=== PATIENT | female | born 1965 | race Caucasian/White ===

== ENCOUNTER 2017-10-29 19:40 | Observation (INO) | payer OTHER ==
[2017-10-29 19:49] VITALS: BMI 24.0
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
[2017-10-29] MEDS ORDERED: ASPIRIN 81 MG CHEWABLE TABLETS PO ONE (20:57)
[2017-10-29] MEDS ORDERED: NITROGLYCERIN SUBLINGUAL 1/200 0.3 MG BTL SL ONE (20:57)
[2017-10-29] MEDS ORDERED: ASPIRIN 81 MG CHEWABLE TABLETS ONE (21:11)
[2017-10-29] MEDS ORDERED: NITROGLYCERIN 2% OINTMENT - 1GM PACKET TD ONE ×2 (21:13→21:50)
[2017-10-29] MEDS ORDERED: ACETAMINOPHEN 1000 MG/100 ML VIAL (NON FORMULARY) IVPB ONE (21:13)
[2017-10-29 21:31] LABS: BASO % 0.3 % (0-2.0); EOS % 2.2 % (0-4.5); HEMATOCRIT 40.2 % (32.4-45.2); HEMOGLOBIN 13.8 GM/dL (10.7-15.3); MCH 31.4 pg (25.7-33.7); MCHC 34.4 g/dl (32.0-36.0); MEAN CELL VOLUME 91.3 fl (80-96); MEAN PLT VOLUME 8.7 fl (7.5-11.1); NEUT % 54.5 % (42.8-82.8); PLATELET COUNT 280 K/MM3 (134-434); RDW 12.5 % (11.6-15.6); WHITE BLOOD COUNT 8.6 K/mm3 (4.0-10.0)
[2017-10-29 21:43] LABS: INR 1.04 (0.83-1.09); PROTHROMBIN TIME (PATIENT) 11.7 SEC (9.7-13.0)
[2017-10-29 21:49] LABS: ALBUMIN 3.6 g/dl (3.4-5.0); ALK PHOS 82 U/L (45-117); ANION GAP 7 MMOL/L (8-16); BILIRUBIN,TOTAL 0.2 mg/dL (0.2-1); BLOOD UREA NITROGEN 12 mg/dL (7-18); CALCIUM 8.4 mg/dL (8.5-10.1); CHLORIDE 108 mmol/L (98-107); CO2 27 mmol/L (21-32); CREATININE 0.6 mg/dL (0.55-1.3); GLUCOSE,RANDOM 196 mg/dL (74-106); POTASSIUM 4.1 mmol/L (3.5-5.1); SGOT/AST 15 U/L (15-37); SGPT/ALT 22 U/L (13-61); SODIUM 142 mmol/L (136-145); TOT PROT 7.1 g/dl (6.4-8.2)
[2017-10-29] MEDS ORDERED: ACETAMINOPHEN INJECTION 100 ML IVPB ONE (21:50)
[2017-10-29] MEDS ORDERED: METOPROLOL TARTRATE 25 MG TABLET (FP) PO ONE (23:25)
[2017-10-29] MEDS ORDERED: ACETAMINOPHEN 325 MG TABLET (FP) PO PRN (23:26)
[2017-10-29] MEDS ORDERED: PATIENT'S OWN MEDICATION (NON-FORMULARY) (Dulaglutide [Trulicity] 0.75 MG) SQ SCH (23:30)
[2017-10-29 23:36] LABS: PHOSPHOROUS 3.2 mg/dL (2.5-4.9)
[2017-10-30] MEDS ORDERED: morphine CARPU-JECT 2 MG/1 ML DISP.SYRIN IVPUSH ONE (01:24)
[2017-10-30] MEDS ORDERED: MORPHINE SULFATE 2 MG/ML VIAL ONE (01:27)
[2017-10-30 01:38] LABS: CHOLESTEROL 172 mg/dL (50-200); HDL CHOLESTEROL 48 mg/dL (40-60); TRIGLYCERIDES 83 mg/dL (0-150)
[2017-10-30] MEDS ORDERED: ACETAMINOPHEN 325 MG TABLET (FP) ONE (06:30)
[2017-10-30 06:59] LABS: BASO % 0.8 % (0-2.0); HEMATOCRIT 34.6 % (32.4-45.2); HEMOGLOBIN 11.8 GM/dL (10.7-15.3); LYMPH % 49.9 % (8-40); MCH 31.1 pg (25.7-33.7); MCHC 34.3 g/dl (32.0-36.0); MEAN CELL VOLUME 90.6 fl (80-96); MEAN PLT VOLUME 8.8 fl (7.5-11.1); MONO % 8.2 % (3.8-10.2); NEUT % 38.1 % (42.8-82.8); PLATELET COUNT 230 K/MM3 (134-434); RBC 3.82 M/mm3 (3.60-5.2); RDW 12.8 % (11.6-15.6); WHITE BLOOD COUNT 6.5 K/mm3 (4.0-10.0)
[2017-10-30 07:02] VITALS: TEMP 98.1
[2017-10-30 07:54] LABS: ANION GAP 5 MMOL/L (8-16); BLOOD UREA NITROGEN 10 mg/dL (7-18); CHLORIDE 109 mmol/L (98-107); CO2 28 mmol/L (21-32); CREATININE 0.5 mg/dL (0.55-1.3); GLUCOSE,RANDOM 134 mg/dL (74-106); POTASSIUM 3.6 mmol/L (3.5-5.1); SODIUM 141 mmol/L (136-145)
[2017-10-30] MEDS: INSULIN SLIDING SCALE (NOVOLOG) 1 VIAL SQ SCH ×2 (07:57→11:34)
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
[2017-10-30] MEDS ORDERED: ASPIRIN 81 MG CHEWABLE TABLETS PO SCH (10:00)
[2017-10-30] MEDS ORDERED: METOPROLOL TARTRATE 25 MG TABLET (FP) PO SCH (10:00)
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
[2017-10-30] MEDS ORDERED: HEMOQUE TEST 1 EACH EACH ONE (11:22)
[2017-10-30] MEDS ORDERED: INSULIN REGULAR HUMAN 100 UNITS/ML *VIAL ONE (11:31)
[2017-10-30 11:57] VITALS: BP 132/70; PULSE 58
--- NOTE | 2017-10-30 12:04 | EKG ---
Test Reason : Blood Pressure : / mmHG Vent. Rate : 056 BPM Atrial Rate : 056 BPM P-R Int : 148 ms QRS Dur : 082 ms QT Int : 450 ms P-R-T Axes : 026 027 029 degrees QTc Int : 434 ms SINUS BRADYCARDIA LOW VOLTAGE QRS SEPTAL INFARCT , AGE UNDETERMINED ABNORMAL ECG WHEN COMPARED WITH ECG OF 31-MAY-2013 11:41, SEPTAL INFARCT IS NOW PRESENT Confirmed by ERIKA LEVIN MD ([id number]) on 10/30/2017 12:04:16 PM Referred By: Confirmed By:ERIKA LEVIN MD
--- NOTE | 2017-10-30 15:59 | DS ---
Physical Examination Vital Signs: Vital Signs Temperature 36.7 C 10/30/17 07:00 Pulse Rate 58 L 10/30/17 11:57 Respiratory Rate 16 10/30/17 11:57 Blood Pressure 132/70 10/30/17 11:57 O2 Sat by Pulse Oximetry (%) 98 10/30/17 07:00 Labs: CBC, BMP 10/30/17 06:05 10/30/17 06:05 Discharge Summary Reason For Visit: CHEST MORENITA/RULE OUT ACUTE MYOCARDIAL INFRACTION Current Active Problems Chest pain, rule out acute myocardial infarction (Acute) Declined smoking cessation (Acute) HTN (hypertension) (Acute) Needs smoking cessation education (Acute) Needs smoking cessation education (Acute) Hospital Course: Ms Mackenzie is a 52 year old female who came in with chest pain. Made aware by the ED staff that she left AMA before ECHO was read. Follow up with PCP and supervisor payroll as an outpatient. Condition: Stable - Instructions - Home Medications Comprehensive Discharge Medication List: Ambulatory Orders Aspirin [ASA -] 81 mg PO DAILY 10/29/17 Atorvastatin Ca [Lipitor] 20 mg PO HS 10/29/17 Dulaglutide [Trulicity] 0.75 mg SQ Q7D 10/29/17 Insulin (LOG) Aspart [NovoLOG -] 0 units SQ TID 10/29/17 Insulin (Levemir) [Levemir Vial] 22 unit SQ HS 10/29/17
--- NOTE | 2017-10-30 16:57 | ECHO ---
Name: NAYANA BUNDY Exam:Adult Echocardiogram Study Date: 10/30/2017 09:58 AM Age: 52 yrs Reason For Study: SYNCOPE Height: 64 in Weight: 140 lb BSA: 1.7 m2 MMode/2D Measurements & Calculations IVSd: 0.91 cm Ao root diam: 3.0 cm LVIDd: 4.6 cm LA dimension: 3.0 cm LVIDs: 3.1 cm LVPWd: 0.82 cm EDV(Teich): 97.2 ml LVOT diam: 2.0 cm ESV(Teich): 39.4 ml TAPSE: 2.0 cm RV S Nikita: 11.4 cm/sec Doppler Measurements & Calculations MV E max nikita: 80.9 cm/sec TR max nikita: 207.8 cm/sec MV A max nikita: 67.1 cm/sec TR max P.6 mmHg MV E/A: 1.2 Med Peak E' Nikita: 7.8 cm/sec Med E/e': 10.4 Lat Peak E' Nikita: 12.1 cm/sec Lat E/e': 6.7 Procedure The study was technically adequate with some images being suboptimal in quality. Left Ventricle The left ventricular size, thickness and function are normal. Left Ventricular Filling pattern is nor mal for age. Right Ventricle The right ventricle is normal in size and function. Atria Normal left and right atrial size and function. Mitral Valve The mitral valve is grossly normal. There is trace mitral regurgitation. Tricuspid Valve The tricuspid valve is not well visualized, but is grossly normal. There is Trace to mild tricuspid regurgitation. Right ventricular systolic pressure is 23 mmhg. Aortic Valve The aortic valve opens well. Trace aortic regurgitation. Pulmonic Valve The pulmonic valve is not well visualized. Great Vessels The aortic root is normal size. Pericardium/Pleura There is no pericardial effusion. Interpretation Summary There is no comparison study available. The left ventricular size, thickness and function are normal The right ventricle is normal in size and function. There is trace mitral regurgitation. Yordan Navarro MD 10/30/2017 04:56 PM
--- NOTE | 2017-10-30 18:09 | EKG ---
Test Reason : Blood Pressure : / mmHG Vent. Rate : 075 BPM Atrial Rate : 075 BPM P-R Int : 132 ms QRS Dur : 080 ms QT Int : 398 ms P-R-T Axes : -07 060 047 degrees QTc Int : 444 ms NORMAL SINUS RHYTHM SEPTAL INFARCT , AGE UNDETERMINED ABNORMAL ECG WHEN COMPARED WITH ECG OF 31-MAY-2013 11:41, SEPTAL INFARCT IS NOW PRESENT T WAVE INVERSION NO LONGER EVIDENT IN INFERIOR LEADS Confirmed by JESSICA RESENDEZ, JOVANI ([id number]) on 10/30/2017 6:08:42 PM Referred By: Confirmed By:JOVANI LOPEZ MD
[2017-10-30] MEDS ORDERED: INSULIN (LEVEMIR) 100 UNITS/ML UNITS SQ SCH (22:00)
[2017-10-30] MEDS ORDERED: ATORVASTATIN CA 20 MG TABLET (FP) PO SCH (22:00)
== END 2017-10-30 16:11 | disposition left against medical advice (07) ==
LOC: JER 19:40 → JERBED 23:51
PROVIDERS: ADMIT Internal Medicine; ATTEND Internal Medicine
PROC: 3E033NZ Introduction of Analgesics, Hypnotics, Sedatives into Peripheral Vein, Percutaneous Approach (ICD-10-PCS; principal; 2017-10-29)
PROC: 3E013VG Introduction of Insulin into Subcutaneous Tissue, Percutaneous Approach (ICD-10-PCS; 2017-10-29)
DX: R07.9 Chest pain, unspecified (principal); I10 Essential (primary) hypertension; E78.5 Hyperlipidemia, unspecified; E11.9 Type 2 diabetes mellitus without complications; F17.210 Nicotine dependence, cigarettes, uncomplicated; R00.1 Bradycardia, unspecified; I25.10 Atherosclerotic heart disease of native coronary artery without angina pectoris; Z82.49 Family history of ischemic heart disease and other diseases of the circulatory system; Z98.61 Coronary angioplasty status; Z98.84 Bariatric surgery status; Z79.4 Long term (current) use of insulin; Z79.82 Long term (current) use of aspirin
CPT/HCPCS: 36415; 71046-TC-FY; 80048; 80053; 80061; 82962; 83036; 83721; 83735; 84100; 84443; 84484; 85025; 85610; 93005; 93010; 93306-TC; 99285-25; G0378; J0131

== ENCOUNTER → 2018-12-27 | Day surgery (SDC) | payer OTHER ==
--- NOTE | 2018-12-28 19:02 | PATH ---
Cytology Non-Gynecological Report Patient Name: NAYANA BUNDY [facility]. Rec. #: [id number] /Age/Gender: 1965 (Age: 53) / F Account: [id number] Location: RADIOLOGY INTER Taken: 12/27/2018 Received: 12/27/2018 Reported: 12/28/2018 Physicians: Zaheer Blood M.D. Specimen(s) Received THYROID, RIGHT, FINE NEEDLE ASPIRATION Clinical History Right lobe, 1.66 x 0.81 x 1.20 cm Final Diagnosis THYROID, RIGHT, FINE NEEDLE ASPIRATION: SATISFACTORY FOR EVALUATION. BETHESDA CLASS II: BENIGN. CYTOLOGIC FINDINGS ARE CONSISTENT WITH A BENIGN FOLLICULAR NODULE. SMALL FOLLICULAR CELLS AND ABUNDANT COLLOID PRESENT. Electronically Signed Lulu eMjia M.D. Gross Description Received are eight direct smears, four of which are air-dried and Diff-Quik stained, and four of which are alcohol fixed and Pap stained. Also received is 20 ml of bloody formalin from which one cellblock is prepared.
== END | disposition home or self-care (01) ==
LOC: JRADIR 09:26
PROVIDERS: ATTEND Internal Medicine
PROC: 0G9K3ZX Drainage of Thyroid Gland, Percutaneous Approach, Diagnostic (ICD-10-PCS; principal; 2018-12-27)
DX: E04.1 Nontoxic single thyroid nodule (principal)
CPT/HCPCS: 76942; 88173; 88305-TC

== ENCOUNTER 2020-01-07 16:00 | Emergency (ER) | payer BC, OTHER ==
[2020-01-07 16:10] VITALS: BP 152/78; PULSE 74; TEMP 98.3; BMI 24.0
[2020-01-07 17:22] LABS: EOS % 3.2 % (0-4.5); HEMATOCRIT 38.1 % (32.4-45.2); HEMOGLOBIN 12.8 GM/dL (10.7-15.3); LYMPH % 39.6 % (8-40); MCH 31.2 pg (25.7-33.7); MCHC 33.7 g/dl (32.0-36.0); MEAN CELL VOLUME 92.7 fl (80-96); MEAN PLT VOLUME 9.3 fl (7.5-11.1); MONO % 9.7 % (3.8-10.2); NEUT % 46.5 % (42.8-82.8); PLATELET COUNT 215 K/MM3 (134-434); RBC 4.11 M/mm3 (3.60-5.2); WHITE BLOOD COUNT 5.7 K/mm3 (4.0-10.0)
[2020-01-07 17:50] LABS: CHLORIDE 103 mmol/L (98-107); POTASSIUM 3.9 mmol/L (3.5-5.1); SODIUM 138 mmol/L (136-145)
[2020-01-07 17:52] LABS: CALCIUM 8.7 mg/dL (8.5-10.1)
[2020-01-07 17:53] LABS: ALBUMIN 3.4 g/dl (3.4-5.0); ANION GAP 4 MMOL/L (8-16); CO2 31 mmol/L (21-32); GLUCOSE,RANDOM 343 mg/dL (74-106)
[2020-01-07 17:56] LABS: CREATININE 0.7 mg/dL (0.55-1.3); SGOT/AST 15 U/L (15-37); SGPT/ALT 23 U/L (13-61)
[2020-01-07 17:57] LABS: BILIRUBIN,TOTAL 0.3 mg/dL (0.2-1)
[2020-01-07 17:59] LABS: ALK PHOS 91 U/L (45-117); TOT PROT 6.5 g/dl (6.4-8.2)
[2020-01-07] MEDS ORDERED: INSULIN REGULAR HUMAN 100 UNITS/ML *VIAL SQ ONE (18:06)
== END 2020-01-07 19:41 | disposition left against medical advice (07) ==
LOC: JER 16:00
DX: R07.9 Chest pain, unspecified (principal)
CPT/HCPCS: 36415; 71046-TC-FY; 80053; 82550; 82962; 84484; 85025; 93005; 93010; 99285-25

== ENCOUNTER 2022-09-28 19:10 | Inpatient (IN) | payer OTHER ==
[2022-09-28] MEDS ORDERED: MAG HYDROX/AL HYDROX/SIMETH 30 ML UNIT-DOSE CUP PO ONE (20:14)
[2022-09-28] MEDS ORDERED: ACETAMINOPHEN 1000 MG/100 ML BAG IVPB ONE (20:14)
[2022-09-28] MEDS ORDERED: METOCLOPRAMIDE HCL INJECTION 10 MG/2 ML VIAL IVPUSH ONE (20:15)
[2022-09-28] MEDS ORDERED: FAMOTIDINE 20 MG/50 ML IVPB 20 MG/50 ML MG IVPB ONE ×2 (20:15→20:28)
[2022-09-28] MEDS ORDERED: METOCLOPRAMIDE HCL INJECTION 10 MG/2 ML VIAL ONE (20:27)
[2022-09-28] MEDS ORDERED: MAG HYDROX/AL HYDROX/SIMETH 30 ML UNIT-DOSE CUP ONE (20:27)
[2022-09-28] MEDS ORDERED: ACETAMINOPHEN INJECTION 100 ML IVPB ONE (20:27)
[2022-09-28] MEDS ORDERED: SODIUM CHLORIDE 1,000 ML IV STA (20:38)
[2022-09-28 20:58] LABS: VENOUS BASE EXCESS -20.5 mmol/L (-2-2); VENOUS O2 SATURATION 48.2 % (70-80); VENOUS PCO2 23.1 mmHg (38-52)
[2022-09-28 21:04] LABS: EOS % 0.5 % (0-4.5); HEMATOCRIT 44.7 % (32.4-45.2); HEMOGLOBIN 13.9 GM/dL (10.7-15.3); LYMPH % 30.7 % (8-40); MCH 31.5 pg (25.7-33.7); MCHC 31.2 g/dl (32.0-36.0); MEAN PLT VOLUME 9.6 fl (7.5-11.1); MONO % 10.5 % (3.8-10.2); NEUT % 56.3 % (42.8-82.8); PLATELET COUNT 270 10^3/uL (134-434); RBC 4.42 M/mm3 (3.60-5.2); RDW 13.3 % (11.6-15.6); WHITE BLOOD COUNT 6.6 K/mm3 (4.0-10.0)
[2022-09-28 21:08] LABS: VENOUS PH 7.113 (7.310-7.410)
[2022-09-28 21:18] LABS: CHLORIDE 95 mmol/L (98-107); SODIUM 133 mmol/L (136-145)
[2022-09-28] MEDS ORDERED: LACTATED RINGERS SOLUTION 1000 ML INFUS.BAG IV ONE (21:19)
[2022-09-28 21:20] LABS: CALCIUM 9.4 mg/dL (8.5-10.1)
[2022-09-28 21:21] LABS: ALBUMIN 3.6 g/dl (3.4-5.0); ANION GAP 29 MMOL/L (8-16); BLOOD UREA NITROGEN 26.5 mg/dL (7-18); CO2 9 mmol/L (21-32); LIPASE 66 U/L (73-393); MAGNESIUM 2.1 mg/dL (1.8-2.4)
[2022-09-28] MEDS ORDERED: CALCIUM GLUCONATE 10% - 1,000 MG/10 ML VIAL IVPB ONE (21:23)
[2022-09-28 21:24] LABS: CREATININE 1.6 mg/dL (0.55-1.3); SGOT/AST 16 U/L (15-37)
[2022-09-28] MEDS ORDERED: INSULIN REGULAR HUMAN 100 UNITS/ML *VIAL IVPUSH ONE (21:24)
[2022-09-28 21:25] LABS: BILIRUBIN,TOTAL 0.6 mg/dL (0.2-1); TOT PROT 7.7 g/dl (6.4-8.2)
[2022-09-28 21:27] LABS: ALK PHOS 126 U/L (45-117)
[2022-09-28 21:31] LABS: GLUCOSE,RANDOM 684 mg/dL (74-106); SGPT/ALT 24 U/L (13-61)
[2022-09-28] MEDS ORDERED: CALCIUM GLUC IN NACL, ISO-OSM 1 GM/50 ML BAG IVPB ONE (21:49)
[2022-09-28] MEDS ORDERED: INSULIN REGULAR 100 UNITS in SODIUM CHLORIDE 99 ML IVPB SCH (22:00)
[2022-09-29] MEDS ORDERED: DEXTROSE 50%-WATER 25 GM/50 ML DISP.SYRIN IVPUSH PRN (00:19)
[2022-09-29] MEDS ORDERED: INSULIN REGULAR HUMAN 100 UNITS/ML *VIAL* (FOR IVP) IVPUSH ONE (00:19)
[2022-09-29] MEDS ORDERED: ONDANSETRON 4 MG/2 ML VIAL IVPUSH PRN (00:22)
[2022-09-29] MEDS ORDERED: LACTATED RINGERS SOLUTION 1,000 ML/1,000 ML INFUS.BAG IV STA (00:23)
[2022-09-29] MEDS ORDERED: INSULIN REGULAR HUMAN 100 UNITS/ML *VIAL ONE ×2 (00:28→01:51)
[2022-09-29] MEDS ORDERED: INSULIN REGULAR 100 UNITS in SODIUM CHLORIDE 99 ML IVPB SCH (00:30)
[2022-09-29 01:38] LABS: EPI CELLS 6 /uL (0-25.1); HYALINE CASTS 0 /uL (0-3.1); URINE APPEARANCE CLEAR; URINE BACTERIA 1530 /uL (0-1359); URINE BILIRUBIN NEGATIVE (NEGATIVE); URINE COLOR YELLOW; URINE GLUCOSE (UA) 3+ (NEGATIVE); URINE KETONE 4+ (NEGATIVE); URINE LEUK ESTERASE NEGATIVE (NEGATIVE); URINE NITRITE NEGATIVE (NEGATIVE); URINE PROTEIN TRACE (NEGATIVE); URINE RBC 5 /uL (0-23.9); URINE UROBILINOGEN 0.2 mg/dL (0.2-1.0); URINE WBC 2 /uL (0-25.8)
[2022-09-29] MEDS ORDERED: LACTATED RINGERS SOLUTION 1,000 ML/1,000 ML INFUS.BAG IV SCH (02:45)
[2022-09-29] MEDS ORDERED: POTASSIUM CHLORIDE 10 MEQ in SODIUM CHLORIDE 1,000 ML IVPB SCH (03:45)
[2022-09-29] MEDS ORDERED: GABAPENTIN 300 MG CAPSULE PO SCH (06:00)
[2022-09-29 07:54] LABS: POTASSIUM 3.9 mmol/L (3.5-5.1)
[2022-09-29 07:58] LABS: BLOOD UREA NITROGEN 17.7 mg/dL (7-18); MAGNESIUM 1.7 mg/dL (1.8-2.4)
[2022-09-29] MEDS ORDERED: MAGNESIUM SULF 50% (8.12 MEQ/2 ML-1 GM VIAL) IVPB ONE (07:58)
[2022-09-29 08:00] LABS: CALCIUM 8.7 mg/dL (8.5-10.1)
[2022-09-29 08:01] LABS: CREATININE 1.1 mg/dL (0.55-1.3); PHOSPHOROUS 2.2 mg/dL (2.5-4.9)
[2022-09-29] MEDS ORDERED: NAPH,MB-DB/K PH,MBDB POWDER PACKET PO ONE (08:04)
[2022-09-29] MEDS ORDERED: PANTOPRAZOLE SODIUM 40 MG VIAL IVPUSH SCH (10:00)
[2022-09-29] MEDS ORDERED: INSULIN (NOVOLOG) ASPART 100 UNITS/ML 10ML VIAL ONE ×2 (11:03→16:27)
[2022-09-29] MEDS: INSULIN SLIDING SCALE (NOVOLOG) 1 VIAL SQ SCH ×2 (11:05→16:28)
[2022-09-29] MEDS ORDERED: traMADol HCL 50 MG TABLET PO PRN (11:29)
[2022-09-29] MEDS: traMADol HCL 50 MG TABLET PO PRN (17:40)
[2022-09-29] MEDS: ACETAMINOPHEN 1000 MG/100 ML BAG IVPB PRN (17:41)
[2022-09-29] MEDS: PREGABALIN 100 MG CAPSULE PO SCH (21:08)
[2022-09-29] MEDS: ATORVASTATIN CA 80 MG TABLET (FP) PO SCH (21:08)
[2022-09-29] MEDS: diazePAM 5 MG TABLET PO SCH (21:09)
[2022-09-29] MEDS: BUDESONIDE/FORMETEROL FUMARATE 80/4.5 mcg INHALER IH SCH (21:10)
[2022-09-29] MEDS: rOPINIRole HCL 1 MG TABLET (FP) PO SCH (21:11)
[2022-09-29] MEDS ORDERED: INSULIN (LEVEMIR) 100 UNITS/ML UNITS SQ SCH (22:00)
[2022-09-29] MEDS ORDERED: PATIENT'S OWN MEDICATION (NON-FORMULARY) (Fluticasone/Salmeterol [Advair Hfa 115-21 Mcg In IH SCH (22:00)
[2022-09-30] MEDS ORDERED: ONDANSETRON 4 MG/2 ML VIAL IVPUSH PRN (05:19)
[2022-09-30] MEDS ORDERED: DEXTROSE 50%-WATER 25 GM/50 ML DISP.SYRIN IVPUSH PRN (05:19)
[2022-09-30] MEDS: INSULIN SLIDING SCALE (NOVOLOG) 1 VIAL SQ SCH ×3 (06:08→17:11)
[2022-09-30] MEDS: ACETAMINOPHEN 1000 MG/100 ML BAG IVPB PRN ×2 (08:53→18:14)
[2022-09-30] MEDS: ENOXAPARIN NA (PORCINE) 40 MG/0.4 ML DISP.SYRIN SQ SCH (09:36)
[2022-09-30] MEDS: ASPIRIN 81 MG CHEWABLE TABLETS PO SCH (09:37)
[2022-09-30] MEDS: BUDESONIDE/FORMETEROL FUMARATE 80/4.5 mcg INHALER IH SCH ×2 (09:38→21:33)
[2022-09-30] MEDS ORDERED: ENOXAPARIN NA (PORCINE) 40 MG/0.4 ML DISP.SYRIN SQ SCH (10:00)
[2022-09-30 10:36] LABS: POTASSIUM 3.8 mmol/L (3.5-5.1)
[2022-09-30] MEDS: PANTOPRAZOLE SODIUM 40 MG VIAL IVPUSH SCH (10:47)
[2022-09-30 10:49] LABS: BLOOD UREA NITROGEN 10.1 mg/dL (7-18); CALCIUM 8.8 mg/dL (8.5-10.1); MAGNESIUM 1.9 mg/dL (1.8-2.4)
[2022-09-30 10:53] LABS: CREATININE 0.8 mg/dL (0.55-1.3)
[2022-09-30] MEDS ORDERED: INSULIN (LEVEMIR) 100 UNITS/ML UNITS SQ ONE (10:57)
[2022-09-30 11:13] LABS: HEMATOCRIT 36.6 % (32.4-45.2); HEMOGLOBIN 12.3 GM/dL (10.7-15.3); MCH 31.2 pg (25.7-33.7); MCHC 33.7 g/dl (32.0-36.0); MEAN PLT VOLUME 8.5 fl (7.5-11.1); PLATELET COUNT 205 10^3/uL (134-434); RBC 3.95 M/mm3 (3.60-5.2); RDW 13.1 % (11.6-15.6); WHITE BLOOD COUNT 7.7 K/mm3 (4.0-10.0)
[2022-09-30 11:15] LABS: MEAN CELL VOLUME 92.5 fl (80-96)
[2022-09-30] MEDS: LIDOCAINE 5% TOPICAL PATCH TP SCH (11:36)
[2022-09-30] MEDS: INSULIN (LEVEMIR) 100 UNITS/ML UNITS SQ SCH ×2 (11:37→21:31)
[2022-09-30] MEDS: traMADol HCL 50 MG TABLET PO PRN (12:30)
[2022-09-30] MEDS: RAMIPRIL 5 MG CAPSULE PO SCH (13:18)
[2022-09-30] MEDS: CHOLECALCIFEROL (VIT D3) 5000 UNITS (125 MCG) CAP PO SCH (13:18)
[2022-09-30] MEDS: ATORVASTATIN CA 80 MG TABLET (FP) PO SCH (21:28)
[2022-09-30] MEDS: diazePAM 5 MG TABLET PO SCH (21:28)
[2022-09-30] MEDS: PREGABALIN 100 MG CAPSULE PO SCH (21:29)
[2022-09-30] MEDS: LIDOCAINE PATCH REMOVAL MC SCH (21:31)
[2022-09-30] MEDS: rOPINIRole HCL 1 MG TABLET (FP) PO SCH (21:48)
[2022-10-01] MEDS: INSULIN SLIDING SCALE (NOVOLOG) 1 VIAL SQ SCH ×3 (06:57→16:39)
[2022-10-01] MEDS: traMADol HCL 50 MG TABLET PO PRN ×2 (08:30→23:10)
[2022-10-01] MEDS: ASPIRIN 81 MG CHEWABLE TABLETS PO SCH (09:14)
[2022-10-01] MEDS: ENOXAPARIN NA (PORCINE) 40 MG/0.4 ML DISP.SYRIN SQ SCH (09:14)
[2022-10-01] MEDS: INSULIN (LEVEMIR) 100 UNITS/ML UNITS SQ SCH ×2 (09:15→22:03)
[2022-10-01] MEDS: PANTOPRAZOLE SODIUM 40 MG VIAL IVPUSH SCH (09:15)
[2022-10-01] MEDS: CHOLECALCIFEROL (VIT D3) 5000 UNITS (125 MCG) CAP PO SCH (09:15)
[2022-10-01] MEDS: RAMIPRIL 5 MG CAPSULE PO SCH (09:16)
[2022-10-01] MEDS: LIDOCAINE 5% TOPICAL PATCH TP SCH (09:16)
[2022-10-01] MEDS: POLYETHYLENE GLYCOL (HEALTHYLAX) 3350 17 GM PACKET PO SCH ×2 (09:17→22:03)
[2022-10-01] MEDS: BUDESONIDE/FORMETEROL FUMARATE 80/4.5 mcg INHALER IH SCH ×2 (09:17→22:15)
[2022-10-01] MEDS: ACETAMINOPHEN 1000 MG/100 ML BAG IVPB PRN (15:26)
[2022-10-01] MEDS: ATORVASTATIN CA 80 MG TABLET (FP) PO SCH (22:04)
[2022-10-01] MEDS: diazePAM 5 MG TABLET PO SCH (22:04)
[2022-10-01] MEDS: PREGABALIN 100 MG CAPSULE PO SCH (22:05)
[2022-10-01] MEDS: rOPINIRole HCL 1 MG TABLET (FP) PO SCH (22:06)
[2022-10-01] MEDS: LIDOCAINE PATCH REMOVAL MC SCH (22:35)
[2022-10-02] MEDS: INSULIN (LEVEMIR) 100 UNITS/ML UNITS SQ SCH ×2 (07:06→21:51)
[2022-10-02] MEDS: INSULIN SLIDING SCALE (NOVOLOG) 1 VIAL SQ SCH ×3 (07:07→17:01)
[2022-10-02] MEDS ORDERED: INSULIN (LEVEMIR) 100 UNITS/ML UNITS SQ ONE (07:42)
[2022-10-02] MEDS: PANTOPRAZOLE SODIUM 40 MG VIAL IVPUSH SCH (09:00)
[2022-10-02] MEDS: traMADol HCL 50 MG TABLET PO PRN ×2 (09:00→21:55)
[2022-10-02] MEDS: ENOXAPARIN NA (PORCINE) 40 MG/0.4 ML DISP.SYRIN SQ SCH (09:01)
[2022-10-02] MEDS: ASPIRIN 81 MG CHEWABLE TABLETS PO SCH (09:01)
[2022-10-02] MEDS: RAMIPRIL 5 MG CAPSULE PO SCH (09:01)
[2022-10-02] MEDS: POLYETHYLENE GLYCOL (HEALTHYLAX) 3350 17 GM PACKET PO SCH ×2 (09:01→21:50)
[2022-10-02] MEDS: LIDOCAINE 5% TOPICAL PATCH TP SCH (09:01)
[2022-10-02] MEDS: CHOLECALCIFEROL (VIT D3) 5000 UNITS (125 MCG) CAP PO SCH (09:09)
[2022-10-02] MEDS: BUDESONIDE/FORMETEROL FUMARATE 80/4.5 mcg INHALER IH SCH ×2 (09:28→22:06)
[2022-10-02] MEDS: diazePAM 5 MG TABLET PO SCH (21:54)
[2022-10-02] MEDS: ATORVASTATIN CA 80 MG TABLET (FP) PO SCH (21:55)
[2022-10-02] MEDS: PREGABALIN 100 MG CAPSULE PO SCH (21:55)
[2022-10-02] MEDS: rOPINIRole HCL 1 MG TABLET (FP) PO SCH (22:06)
[2022-10-02] MEDS: LIDOCAINE PATCH REMOVAL MC SCH (22:08)
[2022-10-03] MEDS ORDERED: BUPIVACAINE HCL/PF 0.25% (2.5MG/ML) 10 ML VIAL IJ ONE
[2022-10-03] MEDS ORDERED: INSULIN (NOVOLOG) ASPART 100 UNITS/ML 10ML VIAL SQ ONE ×2 (01:11→21:15)
[2022-10-03] MEDS ORDERED: DEXTROSE 50%-WATER 25 GM/50 ML DISP.SYRIN ONE (06:28)
[2022-10-03] MEDS: INSULIN SLIDING SCALE (NOVOLOG) 1 VIAL SQ SCH ×2 (06:40→11:41)
[2022-10-03] MEDS: INSULIN (LEVEMIR) 100 UNITS/ML UNITS SQ SCH ×2 (06:40→21:39)
[2022-10-03] MEDS ORDERED: DEXTROSE 50%-WATER 25 GM/50 ML DISP.SYRIN IVPUSH ONE (06:45)
[2022-10-03] MEDS: PANTOPRAZOLE SODIUM 40 MG VIAL IVPUSH SCH (11:10)
[2022-10-03] MEDS: LIDOCAINE 5% TOPICAL PATCH TP SCH (11:11)
[2022-10-03] MEDS: BUDESONIDE/FORMETEROL FUMARATE 80/4.5 mcg INHALER IH SCH ×2 (11:11→22:15)
[2022-10-03] MEDS: traMADol HCL 50 MG TABLET PO PRN (11:12)
[2022-10-03] MEDS ORDERED: BUPIVACAINE HCL/PF 0.5% (5MG/ML) 10 ML VIAL ONE (12:49)
[2022-10-03] MEDS ORDERED: BUPIVACAINE HCL/PF 0.25% (2.5MG/ML) 10 ML VIAL ONE (12:59)
[2022-10-03] MEDS ORDERED: PROPOFOL 20 ML ONE (14:02)
[2022-10-03] MEDS ORDERED: ACETAMINOPHEN INJECTION 100 ML IVPB ONE (14:03)
[2022-10-03] MEDS ORDERED: ROCURONIUM BROMIDE 50 MG/5 ML SYRINGE ONE (14:17)
[2022-10-03] MEDS ORDERED: ONDANSETRON 4 MG/2 ML VIAL ONE (14:24)
[2022-10-03] MEDS ORDERED: DEXAMETHASONE SOD PHOSPHATE 4 MG/1 ML VIAL ONE (14:24)
[2022-10-03] MEDS ORDERED: cefOXitin SODIUM 2 GM VIAL (RESTRICTED TO ID) IVPB ONE (14:25)
[2022-10-03] MEDS ORDERED: SUGAMMADEX SODIUM 200 MG/2 ML VIAL ONE (15:04)
[2022-10-03] MEDS ORDERED: KETOROLAC TROMETHAMINE 30 MG/1 ML VIAL ONE (15:07)
[2022-10-03] MEDS ORDERED: oxyCODONE HCL 5 MG TABLET PO PRN (15:27)
[2022-10-03] MEDS ORDERED: ACETAMINOPHEN 325 MG TABLET (FP) PO PRN ×2 (15:27→16:49)
[2022-10-03] MEDS ORDERED: LACTATED RINGERS SOLUTION 1,000 ML IV SCH (15:30)
[2022-10-03] MEDS ORDERED: ONDANSETRON 4 MG/2 ML VIAL IVPUSH PRN (16:49)
[2022-10-03] MEDS: oxyCODONE HCL 5 MG TABLET PO PRN (18:28)
[2022-10-03] MEDS ORDERED: INSULIN SLIDING SCALE (NOVOLOG) 1 VIAL SQ ONE (20:45)
[2022-10-03] MEDS ORDERED: INSULIN (NOVOLOG) ASPART 100 UNITS/ML 10ML VIAL ONE (20:58)
[2022-10-03] MEDS: ATORVASTATIN CA 80 MG TABLET (FP) PO SCH (21:36)
[2022-10-03] MEDS: diazePAM 5 MG TABLET PO SCH (21:36)
[2022-10-03] MEDS: POLYETHYLENE GLYCOL (HEALTHYLAX) 3350 17 GM PACKET PO SCH (21:36)
[2022-10-03] MEDS: PREGABALIN 100 MG CAPSULE PO SCH (21:37)
[2022-10-03] MEDS: rOPINIRole HCL 1 MG TABLET (FP) PO SCH (21:38)
[2022-10-03] MEDS ORDERED: ACETAMINOPHEN 325 MG TABLET (FP) PO ONE (23:29)
[2022-10-04] MEDS: oxyCODONE HCL 5 MG TABLET PO PRN ×5 (01:32→21:53)
[2022-10-04] MEDS: LACTATED RINGERS SOLUTION 1,000 ML IV SCH ×2 (01:58→22:47)
[2022-10-04] MEDS: traMADol HCL 50 MG TABLET PO PRN ×2 (03:54→17:37)
[2022-10-04] MEDS: INSULIN (LEVEMIR) 100 UNITS/ML UNITS SQ SCH ×2 (06:25→23:30)
[2022-10-04] MEDS: INSULIN SLIDING SCALE (NOVOLOG) 1 VIAL SQ SCH ×3 (06:36→16:22)
[2022-10-04 08:25] LABS: POTASSIUM 4.4 mmol/L (3.5-5.1)
[2022-10-04 08:38] LABS: BLOOD UREA NITROGEN 9.9 mg/dL (7-18)
[2022-10-04 08:41] LABS: CREATININE 0.4 mg/dL (0.55-1.3)
[2022-10-04 08:42] LABS: BILIRUBIN,TOTAL 0.2 mg/dL (0.2-1)
[2022-10-04 08:45] LABS: ALBUMIN 1.4 g/dl (3.4-5.0)
[2022-10-04] MEDS: LIDOCAINE 5% TOPICAL PATCH TP SCH (09:26)
[2022-10-04] MEDS: ASPIRIN 81 MG CHEWABLE TABLETS PO SCH (09:26)
[2022-10-04] MEDS: PANTOPRAZOLE SODIUM 40 MG VIAL IVPUSH SCH (09:26)
[2022-10-04] MEDS: RAMIPRIL 5 MG CAPSULE PO SCH (09:27)
[2022-10-04] MEDS: CHOLECALCIFEROL (VIT D3) 5000 UNITS (125 MCG) CAP PO SCH (09:27)
[2022-10-04] MEDS: POLYETHYLENE GLYCOL (HEALTHYLAX) 3350 17 GM PACKET PO SCH ×2 (09:29→21:54)
[2022-10-04] MEDS: ENOXAPARIN NA (PORCINE) 40 MG/0.4 ML DISP.SYRIN SQ SCH (09:29)
[2022-10-04] MEDS: BUDESONIDE/FORMETEROL FUMARATE 80/4.5 mcg INHALER IH SCH ×2 (09:31→21:55)
[2022-10-04 11:11] LABS: HEMATOCRIT 32.7 % (32.4-45.2); HEMOGLOBIN 11.3 GM/dL (10.7-15.3); MCH 31.8 pg (25.7-33.7); MCHC 34.5 g/dl (32.0-36.0); MEAN CELL VOLUME 92.3 fl (80-96); MEAN PLT VOLUME 9.8 fl (7.5-11.1); PLATELET COUNT 171 10^3/uL (134-434); RBC 3.54 M/mm3 (3.60-5.2); RDW 12.8 % (11.6-15.6); WHITE BLOOD COUNT 8.6 K/mm3 (4.0-10.0)
[2022-10-04] MEDS ORDERED: DOCUSATE SODIUM 100 MG CAPSULE (FP) PO PRN (13:41)
[2022-10-04] MEDS: DEXTROSE 50%-WATER 25 GM/50 ML DISP.SYRIN IVPUSH PRN (14:55)
[2022-10-04] MEDS: rOPINIRole HCL 1 MG TABLET (FP) PO SCH (21:52)
[2022-10-04] MEDS: diazePAM 5 MG TABLET PO SCH (21:52)
[2022-10-04] MEDS: PREGABALIN 100 MG CAPSULE PO SCH (21:53)
[2022-10-04] MEDS: ATORVASTATIN CA 80 MG TABLET (FP) PO SCH (21:53)
[2022-10-04] MEDS: LIDOCAINE PATCH REMOVAL MC SCH ×2 (22:46)
[2022-10-05] MEDS: INSULIN SLIDING SCALE (NOVOLOG) 1 VIAL SQ SCH ×3 (06:37→16:36)
[2022-10-05] MEDS: INSULIN (LEVEMIR) 100 UNITS/ML UNITS SQ SCH ×3 (06:38→21:14)
[2022-10-05] MEDS ORDERED: DOCUSATE SODIUM 100 MG CAPSULE (FP) PO PRN (09:23)
[2022-10-05] MEDS: traMADol HCL 50 MG TABLET PO PRN (09:31)
[2022-10-05] MEDS: ENOXAPARIN NA (PORCINE) 40 MG/0.4 ML DISP.SYRIN SQ SCH (09:32)
[2022-10-05] MEDS: ASPIRIN 81 MG CHEWABLE TABLETS PO SCH (09:32)
[2022-10-05] MEDS: LIDOCAINE 5% TOPICAL PATCH TP SCH (09:32)
[2022-10-05] MEDS: CHOLECALCIFEROL (VIT D3) 5000 UNITS (125 MCG) CAP PO SCH (09:33)
[2022-10-05] MEDS: POLYETHYLENE GLYCOL (HEALTHYLAX) 3350 17 GM PACKET PO SCH ×2 (09:33→21:13)
[2022-10-05] MEDS: PANTOPRAZOLE SODIUM 40 MG VIAL IVPUSH SCH (09:33)
[2022-10-05] MEDS: RAMIPRIL 5 MG CAPSULE PO SCH (09:34)
[2022-10-05] MEDS: BUDESONIDE/FORMETEROL FUMARATE 80/4.5 mcg INHALER IH SCH ×2 (10:25→21:16)
[2022-10-05] MEDS: SENNOSIDES/DOCUSATE COMBO (SENNA PLUS) TABLET (UD) PO SCH ×2 (10:25→21:13)
[2022-10-05] MEDS: oxyCODONE HCL 5 MG TABLET PO PRN ×2 (11:22→16:41)
[2022-10-05] MEDS: LACTATED RINGERS SOLUTION 1,000 ML IV SCH (17:20)
[2022-10-05] MEDS ORDERED: INSULIN (NOVOLOG) ASPART 100 UNITS/ML 10ML VIAL ONE (17:55)
[2022-10-05] MEDS: LIDOCAINE PATCH REMOVAL MC SCH ×2 (21:12)
[2022-10-05] MEDS: diazePAM 5 MG TABLET PO SCH (21:13)
[2022-10-05] MEDS: ATORVASTATIN CA 80 MG TABLET (FP) PO SCH (21:14)
[2022-10-05] MEDS: PREGABALIN 100 MG CAPSULE PO SCH (21:14)
[2022-10-05] MEDS: rOPINIRole HCL 1 MG TABLET (FP) PO SCH (21:14)
[2022-10-05 23:31] VITALS: BMI 19.9
[2022-10-06] MEDS: INSULIN (LEVEMIR) 100 UNITS/ML UNITS SQ SCH ×2 (06:13→21:21)
[2022-10-06] MEDS: INSULIN SLIDING SCALE (NOVOLOG) 1 VIAL SQ SCH ×3 (06:14→17:04)
[2022-10-06 08:44] LABS: POTASSIUM 4.7 mmol/L (3.5-5.1)
[2022-10-06 08:52] LABS: CREATININE 0.5 mg/dL (0.55-1.3)
[2022-10-06 08:55] LABS: BILIRUBIN,TOTAL 0.2 mg/dL (0.2-1)
[2022-10-06 08:58] LABS: ALBUMIN 2.5 g/dl (3.4-5.0); CALCIUM 8.7 mg/dL (8.5-10.1); TOT PROT 5.6 g/dl (6.4-8.2)
[2022-10-06] MEDS: ASPIRIN 81 MG CHEWABLE TABLETS PO SCH (09:19)
[2022-10-06] MEDS: SIMETHICONE 80 MG TAB.CHEW (FP) PO PRN ×2 (09:19→21:16)
[2022-10-06] MEDS: traMADol HCL 50 MG TABLET PO PRN (09:19)
[2022-10-06] MEDS: RAMIPRIL 5 MG CAPSULE PO SCH (09:20)
[2022-10-06] MEDS: CHOLECALCIFEROL (VIT D3) 5000 UNITS (125 MCG) CAP PO SCH (09:20)
[2022-10-06] MEDS: SENNOSIDES/DOCUSATE COMBO (SENNA PLUS) TABLET (UD) PO SCH ×2 (09:20→21:16)
[2022-10-06] MEDS: LIDOCAINE 5% TOPICAL PATCH TP SCH (09:21)
[2022-10-06] MEDS: ENOXAPARIN NA (PORCINE) 40 MG/0.4 ML DISP.SYRIN SQ SCH (09:21)
[2022-10-06] MEDS: POLYETHYLENE GLYCOL (HEALTHYLAX) 3350 17 GM PACKET PO SCH ×2 (09:21→21:15)
[2022-10-06] MEDS: PANTOPRAZOLE SODIUM 40 MG VIAL IVPUSH SCH (09:21)
[2022-10-06] MEDS: BUDESONIDE/FORMETEROL FUMARATE 80/4.5 mcg INHALER IH SCH ×2 (11:56→21:20)
[2022-10-06] MEDS ORDERED: ACETAMINOPHEN 500 MG TABLET (FP) PO PRN ×2 (14:09→18:12)
[2022-10-06] MEDS ORDERED: traMADol HCL 50 MG TABLET PO PRN (18:12)
[2022-10-06] MEDS: LACTATED RINGERS SOLUTION 1,000 ML IV SCH ×2 (18:37→21:15)
[2022-10-06] MEDS: PREGABALIN 100 MG CAPSULE PO SCH (21:16)
[2022-10-06] MEDS: ATORVASTATIN CA 80 MG TABLET (FP) PO SCH (21:16)
[2022-10-06] MEDS: rOPINIRole HCL 1 MG TABLET (FP) PO SCH (21:16)
[2022-10-06] MEDS: diazePAM 5 MG TABLET PO SCH (21:16)
[2022-10-06] MEDS: LIDOCAINE PATCH REMOVAL MC SCH ×2 (21:17)
[2022-10-07] MEDS: INSULIN (LEVEMIR) 100 UNITS/ML UNITS SQ SCH (06:05)
[2022-10-07] MEDS: INSULIN SLIDING SCALE (NOVOLOG) 1 VIAL SQ SCH ×2 (06:08→19:27)
[2022-10-07] MEDS ORDERED: DEXTROSE 50%-WATER 25 GM/50 ML DISP.SYRIN ONE ×2 (10:17→10:20)
[2022-10-07] MEDS ORDERED: GLUCAGON 1 MG KIT ONE (10:21)
[2022-10-07] MEDS ORDERED: INSULIN SLIDING SCALE (NOVOLOG) 1 VIAL SQ SCH (10:23)
[2022-10-07] MEDS: DEXTROSE 50%-WATER 25 GM/50 ML DISP.SYRIN IVPUSH PRN (10:30)
[2022-10-07] MEDS ORDERED: LORazepam 2 MG/ML SDV VIAL IVPUSH PRN ×2 (10:55→17:56)
[2022-10-07] MEDS ORDERED: THIAMINE HCL 200 MG/2 ML VIAL IVPB SCH (10:57)
[2022-10-07 11:18] LABS: BASO % 0.7 % (0-2.0); EOS % 1.8 % (0-4.5); HEMATOCRIT 31.5 % (32.4-45.2); HEMOGLOBIN 10.7 GM/dL (10.7-15.3); MCH 31.3 pg (25.7-33.7); MCHC 33.9 g/dl (32.0-36.0); MEAN CELL VOLUME 92.3 fl (80-96); MEAN PLT VOLUME 9.2 fl (7.5-11.1); MONO % 15.6 % (3.8-10.2); NEUT % 60.9 % (42.8-82.8); PLATELET COUNT 189 10^3/uL (134-434); RBC 3.41 M/mm3 (3.60-5.2); RDW 12.5 % (11.6-15.6)
[2022-10-07] MEDS ORDERED: NALOXONE HCL 0.4 MG/ML VIAL IVPUSH ONE ×2 (11:33→17:56)
[2022-10-07 11:44] LABS: POTASSIUM 3.5 mmol/L (3.5-5.1)
[2022-10-07 11:46] LABS: CALCIUM 8.2 mg/dL (8.5-10.1)
[2022-10-07 11:47] LABS: ALBUMIN 2.3 g/dl (3.4-5.0); BLOOD UREA NITROGEN 11.4 mg/dL (7-18); MAGNESIUM 1.6 mg/dL (1.8-2.4)
[2022-10-07 11:50] LABS: CREATININE 0.5 mg/dL (0.55-1.3); PHOSPHOROUS 4.2 mg/dL (2.5-4.9)
[2022-10-07 11:51] LABS: BILIRUBIN,TOTAL 0.2 mg/dL (0.2-1); TOT PROT 5.2 g/dl (6.4-8.2)
[2022-10-07] MEDS: ASPIRIN 81 MG CHEWABLE TABLETS PO SCH ×2 (12:39→19:26)
[2022-10-07] MEDS: RAMIPRIL 5 MG CAPSULE PO SCH ×2 (12:39→19:26)
[2022-10-07] MEDS: PANTOPRAZOLE SODIUM 40 MG VIAL IVPUSH SCH (12:40)
[2022-10-07] MEDS: ENOXAPARIN NA (PORCINE) 40 MG/0.4 ML DISP.SYRIN SQ SCH ×2 (12:40→19:26)
[2022-10-07] MEDS: POLYETHYLENE GLYCOL (HEALTHYLAX) 3350 17 GM PACKET PO SCH ×3 (12:40→21:42)
[2022-10-07] MEDS: BUDESONIDE/FORMETEROL FUMARATE 80/4.5 mcg INHALER IH SCH ×2 (12:40→22:22)
[2022-10-07] MEDS: CHOLECALCIFEROL (VIT D3) 5000 UNITS (125 MCG) CAP PO SCH ×2 (12:40→19:27)
[2022-10-07] MEDS: LIDOCAINE 5% TOPICAL PATCH TP SCH (12:40)
[2022-10-07] MEDS: SENNOSIDES/DOCUSATE COMBO (SENNA PLUS) TABLET (UD) PO SCH ×2 (12:40→21:42)
[2022-10-07 12:42] LABS: VENOUS BASE EXCESS -4.2 mmol/L (-2-2); VENOUS PCO2 36.3 mmHg (38-52); VENOUS PH 7.368 (7.310-7.410)
[2022-10-07] MEDS ORDERED: INSULIN (LEVEMIR) 100 UNITS/ML UNITS SQ SCH (13:25)
[2022-10-07] MEDS: MUPIROCIN 2% TOPICAL OINTMENT FOR DECOLONIZATION NS SCH ×2 (13:42→21:42)
[2022-10-07] MEDS ORDERED: DEXTROSE 5%-LACTATED RINGERS 1,000 ML IV SCH (15:00)
[2022-10-07] MEDS ORDERED: ACETAMINOPHEN 1000 MG/100 ML BAG IVPB ONE (16:55)
[2022-10-07] MEDS ORDERED: DEXTROSE 50%-WATER 25 GM/50 ML DISP.SYRIN IVPUSH PRN (17:56)
[2022-10-07] MEDS ORDERED: ONDANSETRON 4 MG/2 ML VIAL IVPUSH PRN (17:56)
[2022-10-07] MEDS ORDERED: DOCUSATE SODIUM 100 MG CAPSULE (FP) PO PRN (17:56)
[2022-10-07] MEDS ORDERED: SIMETHICONE 80 MG TAB.CHEW (FP) PO PRN (17:56)
[2022-10-07] MEDS: LACTATED RINGERS SOLUTION 1,000 ML/1,000 ML INFUS.BAG IV SCH (18:22)
[2022-10-07 18:38] LABS: PH,URINE 7.5 (5.0-8.0); URINE APPEARANCE CLEAR; URINE BILIRUBIN NEGATIVE (NEGATIVE); URINE COLOR YELLOW; URINE GLUCOSE (UA) 3+ (NEGATIVE); URINE KETONE NEGATIVE (NEGATIVE); URINE LEUK ESTERASE NEGATIVE (NEGATIVE); URINE NITRITE NEGATIVE (NEGATIVE); URINE PROTEIN NEGATIVE (NEGATIVE)
[2022-10-07] MEDS: LIDOCAINE PATCH REMOVAL MC SCH ×6 (19:28→22:24)
[2022-10-07] MEDS: traMADol HCL 50 MG TABLET PO PRN (20:36)
[2022-10-07 20:47] LABS: COCAINE, UR NEGATIVE (NEGATIVE); OPIATES, URI NEGATIVE (NEGATIVE); URINE AMPHETAMINES NEGATIVE (NEGATIVE); URINE BARBITURATES NEGATIVE (NEGATIVE)
[2022-10-07 20:48] LABS: METHADONE, UR NEGATIVE (NEGATIVE); PHENCYCLIDINE,URINE NEGATIVE (NEGATIVE); URINE BENZODIAZEPINES POSITIVE (NEGATIVE)
[2022-10-07] MEDS ORDERED: diazePAM 5 MG TABLET PO SCH (22:00)
[2022-10-07] MEDS ORDERED: CHLORHEXIDINE GLUCONATE 4% CLEANSER FOR DECOLONIZATION TP SCH (22:00)
[2022-10-07] MEDS ORDERED: rOPINIRole HCL 1 MG TABLET (FP) PO SCH (22:00)
[2022-10-07] MEDS ORDERED: ATORVASTATIN CA 80 MG TABLET (FP) PO SCH (22:00)
[2022-10-07] MEDS ORDERED: PREGABALIN 100 MG CAPSULE PO SCH (22:00)
[2022-10-07] MEDS ORDERED: LIDOCAINE 5% TOPICAL PATCH TP ONE (22:15)
[2022-10-08] MEDS: INSULIN SLIDING SCALE (NOVOLOG) 1 VIAL SQ SCH ×5 (01:53→22:57)
[2022-10-08] MEDS: ACETAMINOPHEN 500 MG TABLET (FP) PO PRN ×2 (01:57→09:39)
[2022-10-08] MEDS: LACTATED RINGERS SOLUTION 1,000 ML/1,000 ML INFUS.BAG IV SCH ×2 (06:30→19:28)
[2022-10-08] MEDS ORDERED: INSULIN (LEVEMIR) 100 UNITS/ML UNITS SQ SCH (07:00)
[2022-10-08] MEDS ORDERED: INSULIN SLIDING SCALE (NOVOLOG) 1 VIAL SQ SCH (07:00)
[2022-10-08 08:19] LABS: POTASSIUM 3.8 mmol/L (3.5-5.1)
[2022-10-08 08:20] LABS: HEMATOCRIT 30.5 % (32.4-45.2); HEMOGLOBIN 10.3 GM/dL (10.7-15.3); MCH 31.3 pg (25.7-33.7); MCHC 33.7 g/dl (32.0-36.0); MEAN CELL VOLUME 92.8 fl (80-96); MEAN PLT VOLUME 10.6 fl (7.5-11.1); PLATELET COUNT 198 10^3/uL (134-434); RBC 3.29 M/mm3 (3.60-5.2); WHITE BLOOD COUNT 5.9 K/mm3 (4.0-10.0)
[2022-10-08 08:22] LABS: ALBUMIN 2.2 g/dl (3.4-5.0); BLOOD UREA NITROGEN 8.2 mg/dL (7-18); MAGNESIUM 1.5 mg/dL (1.8-2.4)
[2022-10-08 08:25] LABS: CREATININE 0.4 mg/dL (0.55-1.3); PHOSPHOROUS 3.5 mg/dL (2.5-4.9)
[2022-10-08 08:27] LABS: BILIRUBIN,TOTAL 0.2 mg/dL (0.2-1); TOT PROT 4.9 g/dl (6.4-8.2)
[2022-10-08] MEDS: traMADol HCL 50 MG TABLET PO PRN (09:40)
[2022-10-08] MEDS: MUPIROCIN 2% TOPICAL OINTMENT FOR DECOLONIZATION NS SCH (09:41)
[2022-10-08] MEDS ORDERED: PANTOPRAZOLE SODIUM 40 MG VIAL IVPUSH SCH (10:00)
[2022-10-08] MEDS ORDERED: LIDOCAINE 5% TOPICAL PATCH TP SCH (10:00)
[2022-10-08] MEDS ORDERED: ENOXAPARIN NA (PORCINE) 40 MG/0.4 ML DISP.SYRIN SQ SCH (10:00)
[2022-10-08] MEDS ORDERED: CHOLECALCIFEROL (VIT D3) 5000 UNITS (125 MCG) CAP PO SCH (10:00)
[2022-10-08] MEDS ORDERED: THIAMINE HCL 200 MG/2 ML VIAL IVPB SCH (10:00)
[2022-10-08] MEDS ORDERED: ASPIRIN 81 MG CHEWABLE TABLETS PO SCH (10:00)
[2022-10-08] MEDS ORDERED: RAMIPRIL 5 MG CAPSULE PO SCH (10:00)
[2022-10-08] MEDS: POLYETHYLENE GLYCOL (HEALTHYLAX) 3350 17 GM PACKET PO SCH ×2 (10:30→21:38)
[2022-10-08] MEDS ORDERED: MAG HYDROX/AL HYDROX/SIMETH -MYLANTA- ORAL SUSPENSION PO ONE (11:06)
[2022-10-08] MEDS ORDERED: INSULIN (LEVEMIR) 100 UNITS/ML UNITS SQ ONE (13:13)
[2022-10-08] MEDS ORDERED: INSULIN (NOVOLOG) ASPART 100 UNITS/ML 10ML VIAL ONE (13:13)
[2022-10-08] MEDS: BUDESONIDE/FORMETEROL FUMARATE 80/4.5 mcg INHALER IH SCH ×2 (13:29→21:49)
[2022-10-08] MEDS: SENNOSIDES/DOCUSATE COMBO (SENNA PLUS) TABLET (UD) PO SCH ×2 (15:11→21:38)
[2022-10-08] MEDS ORDERED: MAG HYDROX/AL HYDROX/SIMETH 30 ML UNIT-DOSE CUP PO ONE (15:15)
[2022-10-08] MEDS ORDERED: MAGNESIUM 1GM/D5W 100ML - 100 ML IVPB IVPB ONE (20:25)
[2022-10-08] MEDS ORDERED: MAGNESIUM OXIDE 400 MG TABLET (FP) PO ONE (20:25)
[2022-10-08] MEDS ORDERED: LACTATED RINGERS SOLUTION 1,000 ML/1,000 ML INFUS.BAG IV SCH (21:02)
[2022-10-08] MEDS ORDERED: traMADol HCL 50 MG TABLET PO PRN (21:02)
[2022-10-08] MEDS ORDERED: ONDANSETRON 4 MG/2 ML VIAL IVPUSH PRN (21:02)
[2022-10-08] MEDS ORDERED: DOCUSATE SODIUM 100 MG CAPSULE (FP) PO PRN (21:02)
[2022-10-08] MEDS ORDERED: ACETAMINOPHEN 500 MG TABLET (FP) PO PRN (21:02)
[2022-10-08] MEDS ORDERED: SIMETHICONE 80 MG TAB.CHEW (FP) PO PRN (21:02)
[2022-10-08] MEDS: PREGABALIN 100 MG CAPSULE PO SCH (21:37)
[2022-10-08] MEDS: diazePAM 5 MG TABLET PO SCH (21:38)
[2022-10-08] MEDS: ATORVASTATIN CA 80 MG TABLET (FP) PO SCH (21:38)
[2022-10-08] MEDS: rOPINIRole HCL 1 MG TABLET (FP) PO SCH (21:49)
[2022-10-08] MEDS: LIDOCAINE PATCH REMOVAL MC SCH (21:50)
[2022-10-08] MEDS ORDERED: LIDOCAINE PATCH REMOVAL MC SCH ×2 (22:00)
[2022-10-09] MEDS: INSULIN (LEVEMIR) 100 UNITS/ML UNITS SQ SCH (07:43)
[2022-10-09] MEDS: INSULIN SLIDING SCALE (NOVOLOG) 1 VIAL SQ SCH ×4 (07:43→22:02)
[2022-10-09] MEDS: LIDOCAINE 5% TOPICAL PATCH TP SCH (09:48)
[2022-10-09] MEDS: RAMIPRIL 5 MG CAPSULE PO SCH (09:49)
[2022-10-09] MEDS: ASPIRIN 81 MG CHEWABLE TABLETS PO SCH (09:49)
[2022-10-09] MEDS: SENNOSIDES/DOCUSATE COMBO (SENNA PLUS) TABLET (UD) PO SCH ×2 (09:50→22:05)
[2022-10-09] MEDS: THIAMINE HCL 200 MG/2 ML VIAL IVPB SCH (09:50)
[2022-10-09] MEDS: CHOLECALCIFEROL (VIT D3) 5000 UNITS (125 MCG) CAP PO SCH (09:50)
[2022-10-09] MEDS: ENOXAPARIN NA (PORCINE) 40 MG/0.4 ML DISP.SYRIN SQ SCH (09:50)
[2022-10-09] MEDS: PANTOPRAZOLE SODIUM 40 MG VIAL IVPUSH SCH (09:50)
[2022-10-09] MEDS: BUDESONIDE/FORMETEROL FUMARATE 80/4.5 mcg INHALER IH SCH ×2 (09:51→22:06)
[2022-10-09] MEDS: POLYETHYLENE GLYCOL (HEALTHYLAX) 3350 17 GM PACKET PO SCH ×2 (09:52→22:02)
[2022-10-09 10:09] LABS: HEMATOCRIT 32.4 % (32.4-45.2); HEMOGLOBIN 10.9 GM/dL (10.7-15.3); MCH 31.9 pg (25.7-33.7); MCHC 33.7 g/dl (32.0-36.0); MEAN CELL VOLUME 94.5 fl (80-96); PLATELET COUNT 213 10^3/uL (134-434); RBC 3.43 M/mm3 (3.60-5.2); RDW 12.4 % (11.6-15.6); WHITE BLOOD COUNT 5.9 K/mm3 (4.0-10.0)
[2022-10-09 10:10] LABS: POTASSIUM 3.9 mmol/L (3.5-5.1)
[2022-10-09 10:12] LABS: ALBUMIN 2.5 g/dl (3.4-5.0); CALCIUM 8.3 mg/dL (8.5-10.1)
[2022-10-09 10:13] LABS: BLOOD UREA NITROGEN 6.2 mg/dL (7-18)
[2022-10-09 10:16] LABS: CREATININE 0.6 mg/dL (0.55-1.3)
[2022-10-09 10:17] LABS: TOT PROT 5.6 g/dl (6.4-8.2)
[2022-10-09 10:18] LABS: BILIRUBIN,TOTAL 0.2 mg/dL (0.2-1)
[2022-10-09] MEDS ORDERED: INSULIN (NOVOLOG) ASPART 100 UNITS/ML 10ML VIAL ONE ×3 (11:30→21:39)
[2022-10-09] MEDS: diazePAM 5 MG TABLET PO SCH (22:04)
[2022-10-09] MEDS: ATORVASTATIN CA 80 MG TABLET (FP) PO SCH (22:05)
[2022-10-09] MEDS: rOPINIRole HCL 1 MG TABLET (FP) PO SCH (22:05)
[2022-10-09] MEDS: PREGABALIN 100 MG CAPSULE PO SCH (22:05)
[2022-10-09] MEDS: LIDOCAINE PATCH REMOVAL MC SCH (22:06)
[2022-10-10 06:25] VITALS: RESP 18
[2022-10-10] MEDS: INSULIN (LEVEMIR) 100 UNITS/ML UNITS SQ SCH (07:35)
[2022-10-10] MEDS: INSULIN SLIDING SCALE (NOVOLOG) 1 VIAL SQ SCH ×2 (07:35→11:43)
[2022-10-10] MEDS: RAMIPRIL 5 MG CAPSULE PO SCH (09:23)
[2022-10-10] MEDS: SENNOSIDES/DOCUSATE COMBO (SENNA PLUS) TABLET (UD) PO SCH (09:23)
[2022-10-10] MEDS: ASPIRIN 81 MG CHEWABLE TABLETS PO SCH (09:24)
[2022-10-10] MEDS: CHOLECALCIFEROL (VIT D3) 5000 UNITS (125 MCG) CAP PO SCH (09:24)
[2022-10-10] MEDS: ENOXAPARIN NA (PORCINE) 40 MG/0.4 ML DISP.SYRIN SQ SCH (09:25)
[2022-10-10] MEDS: PANTOPRAZOLE SODIUM 40 MG VIAL IVPUSH SCH (09:25)
[2022-10-10] MEDS: LIDOCAINE 5% TOPICAL PATCH TP SCH (09:25)
[2022-10-10] MEDS: THIAMINE HCL 200 MG/2 ML VIAL IVPB SCH (09:25)
[2022-10-10] MEDS: POLYETHYLENE GLYCOL (HEALTHYLAX) 3350 17 GM PACKET PO SCH (09:25)
[2022-10-10 09:52] LABS: HEMATOCRIT 32.5 % (32.4-45.2); HEMOGLOBIN 10.8 GM/dL (10.7-15.3); MCH 31.3 pg (25.7-33.7); MCHC 33.1 g/dl (32.0-36.0); MEAN CELL VOLUME 94.5 fl (80-96); MEAN PLT VOLUME 9.9 fl (7.5-11.1); PLATELET COUNT 246 10^3/uL (134-434); RBC 3.44 M/mm3 (3.60-5.2); RDW 12.2 % (11.6-15.6)
[2022-10-10 10:03] LABS: POTASSIUM 4.1 mmol/L (3.5-5.1)
[2022-10-10 10:10] LABS: BLOOD UREA NITROGEN 11.1 mg/dL (7-18); CALCIUM 8.5 mg/dL (8.5-10.1)
[2022-10-10 10:11] LABS: ALBUMIN 2.6 g/dl (3.4-5.0)
[2022-10-10 10:14] LABS: CREATININE 0.5 mg/dL (0.55-1.3)
[2022-10-10 10:15] LABS: BILIRUBIN,TOTAL 0.3 mg/dL (0.2-1); TOT PROT 5.9 g/dl (6.4-8.2)
[2022-10-10] MEDS: BUDESONIDE/FORMETEROL FUMARATE 80/4.5 mcg INHALER IH SCH (10:16)
[2022-10-10] MEDS ORDERED: INSULIN (NOVOLOG) ASPART 100 UNITS/ML 10ML VIAL ONE (11:36)
[2022-10-10 12:04] VITALS: BP 109/66; PULSE 76; TEMP 98
== END 2022-10-10 12:55 | disposition home or self-care (01) | DRG 417 ==
LOC: JER 19:10 → JERBED 21:28 → JICU 22:52 → J6S 09-30 05:02 → JICU 10-07 11:43 → J8W 10-08 21:02
PROVIDERS: ADMIT Family Medicine; ATTEND Family Medicine
PROC: 0FT44ZZ Resection of Gallbladder, Percutaneous Endoscopic Approach (ICD-10-PCS; principal; 2022-10-03 15:30)
DX: K80.50 Calculus of bile duct without cholangitis or cholecystitis without obstruction (principal); E11.10 Type 2 diabetes mellitus with ketoacidosis without coma; G92.8 Other toxic encephalopathy; I10 Essential (primary) hypertension; E11.51 Type 2 diabetes mellitus with diabetic peripheral angiopathy without gangrene; R10.11 Right upper quadrant pain; E11.649 Type 2 diabetes mellitus with hypoglycemia without coma; J44.9 Chronic obstructive pulmonary disease, unspecified; M16.12 Unilateral primary osteoarthritis, left hip; I95.89 Other hypotension; W18.39XA Other fall on same level, initial encounter; Y92.098 Other place in other non-institutional residence as the place of occurrence of the external cause; T41.3X1A Poisoning by local anesthetics, accidental (unintentional), initial encounter; T40.711A Poisoning by cannabis, accidental (unintentional), initial encounter; M54.9 Dorsalgia, unspecified
CPT/HCPCS: 0241U-QW; 36415; 70450-TC; 71045-TC-FY; 73030-TC-LT-FY; 73502-TC-LT-FY; 73590-TC-LT-FY; 73700-TC-RT; 74174-TC; 76705-TC; 80048; 80053; 80307; 81003; 82010; 82533; 82550; 82803; 82962; 83036; 83605; 83690; 83735; 84100; 84439; 84443; 84481; 84484; 85025; 85027; 86769; 87040; 87086; 88304-TC; 93005; 93010; 94010; 94760; 97116-GP; 99291

== ENCOUNTER 2022-12-20 14:06 | Inpatient (IN) | payer OTHER ==
[2022-12-20] MEDS ORDERED: ACETAMINOPHEN 1000 MG/100 ML BAG IVPB ONE (15:42)
[2022-12-20] MEDS ORDERED: ACETAMINOPHEN INJECTION 100 ML IVPB ONE (15:44)
[2022-12-20 15:48] LABS: BASO % 1.3 % (0-2.0); EOS % 3.4 % (0-4.5); HEMATOCRIT 42.9 % (32.4-45.2); LYMPH % 40.1 % (8-40); MCH 29.9 pg (25.7-33.7); MCHC 32.5 g/dl (32.0-36.0); MEAN CELL VOLUME 92.1 fl (80-96); MEAN PLT VOLUME 8.6 fl (7.5-11.1); MONO % 8.9 % (3.8-10.2); NEUT % 46.3 % (42.8-82.8); PLATELET COUNT 250 10^3/uL (134-434); RBC 4.66 M/mm3 (3.60-5.2); RDW 12.5 % (11.6-15.6); WHITE BLOOD COUNT 5.9 K/mm3 (4.0-10.0)
[2022-12-20 15:58] LABS: INR 0.91 (0.83-1.09); PROTHROMBIN TIME (PATIENT) 10.6 SEC (9.7-13.0)
[2022-12-20 16:00] LABS: ACTIVATED PTT 29.1 SECONDS (25.2-36.5)
[2022-12-20 16:11] LABS: POTASSIUM 4.4 mmol/L (3.5-5.1)
[2022-12-20 16:13] LABS: ALBUMIN 3.5 g/dl (3.4-5.0); BLOOD UREA NITROGEN 18.9 mg/dL (7-18); CALCIUM 9.7 mg/dL (8.5-10.1)
[2022-12-20 16:16] LABS: CREATININE 0.8 mg/dL (0.55-1.3)
[2022-12-20 16:18] LABS: BILIRUBIN,TOTAL 0.7 mg/dL (0.2-1); TOT PROT 6.7 g/dl (6.4-8.2)
[2022-12-20] MEDS ORDERED: oxyCODONE HCL 5 MG TABLET PO ONE (17:00)
[2022-12-20] MEDS ORDERED: oxyCODONE HCL 5 MG TABLET ONE (17:04)
[2022-12-20] MEDS ORDERED: IBUPROFEN 400 MG TABLET (FP) PO ONE ×2 (21:14→21:18)
[2022-12-20] MEDS ORDERED: SODIUM CHLORIDE 1,000 ML IV STA (22:34)
[2022-12-20] MEDS: SODIUM CHLORIDE 1,000 ML IV SCH (23:00)
[2022-12-21] MEDS ORDERED: traMADol HCL 50 MG TABLET PO PRN (02:23)
[2022-12-21] MEDS ORDERED: ACETAMINOPHEN 1000 MG/100 ML BAG IVPB PRN (02:26)
[2022-12-21] MEDS ORDERED: GABAPENTIN 300 MG CAPSULE ONE ×2 (06:06→21:36)
[2022-12-21] MEDS: GABAPENTIN 300 MG CAPSULE PO SCH ×3 (06:20→21:49)
[2022-12-21] MEDS: INSULIN SLIDING SCALE (NOVOLOG) 1 VIAL SQ SCH ×4 (06:20→21:50)
[2022-12-21] MEDS: INSULIN (LEVEMIR) 100 UNITS/ML UNITS SQ SCH ×2 (06:21→21:49)
[2022-12-21] MEDS ORDERED: traMADol HCL 50 MG TABLET ONE (09:21)
[2022-12-21] MEDS: CYANOCOBALAMIN 1,000 MCG TABLET (FP) PO SCH (09:30)
[2022-12-21] MEDS: ASPIRIN 81 MG CHEWABLE TABLETS PO SCH (09:30)
[2022-12-21] MEDS: ENOXAPARIN NA (PORCINE) 40 MG/0.4 ML DISP.SYRIN SQ SCH (09:30)
[2022-12-21] MEDS: traMADol HCL 50 MG TABLET PO PRN (09:31)
[2022-12-21 09:35] LABS: BASO % 1.8 % (0-2.0); EOS % 4.7 % (0-4.5); HEMATOCRIT 37.8 % (32.4-45.2); HEMOGLOBIN 12.3 GM/dL (10.7-15.3); LYMPH % 42.7 % (8-40); MCH 29.9 pg (25.7-33.7); MCHC 32.4 g/dl (32.0-36.0); MEAN CELL VOLUME 92.2 fl (80-96); MEAN PLT VOLUME 9.3 fl (7.5-11.1); MONO % 8.4 % (3.8-10.2); NEUT % 42.4 % (42.8-82.8); PLATELET COUNT 214 10^3/uL (134-434); RDW 12.3 % (11.6-15.6); WHITE BLOOD COUNT 4.3 K/mm3 (4.0-10.0)
[2022-12-21 09:59] LABS: POTASSIUM 4.2 mmol/L (3.5-5.1)
[2022-12-21] MEDS ORDERED: rOPINIRole HCL 1 MG TABLET (FP) PO SCH (10:00)
[2022-12-21 10:02] LABS: CALCIUM 8.5 mg/dL (8.5-10.1)
[2022-12-21 10:04] LABS: ALBUMIN 3.2 g/dl (3.4-5.0); BLOOD UREA NITROGEN 15.4 mg/dL (7-18)
[2022-12-21 10:06] LABS: CREATININE 0.8 mg/dL (0.55-1.3)
[2022-12-21 10:07] LABS: PHOSPHOROUS 3.6 mg/dL (2.5-4.9)
[2022-12-21 10:08] LABS: TOT PROT 6.1 g/dl (6.4-8.2)
[2022-12-21 10:10] LABS: BILIRUBIN,TOTAL 0.6 mg/dL (0.2-1)
[2022-12-21 10:13] LABS: MAGNESIUM 1.7 mg/dL (1.8-2.4)
[2022-12-21] MEDS: BUDESONIDE/FORMETEROL FUMARATE 80/4.5 mcg INHALER IH SCH ×2 (11:29→21:49)
[2022-12-21] MEDS ORDERED: MAGNESIUM SULF 50% (8.12 MEQ/2 ML-1 GM VIAL) IVPB ONE (14:15)
[2022-12-21] MEDS ORDERED: MAGNESIUM SULFATE IN WATER 2 GM/50 ML IVPB IVPB ONE (14:16)
[2022-12-21] MEDS ORDERED: PREGABALIN 100 MG CAPSULE ONE (21:36)
[2022-12-21] MEDS ORDERED: ATORVASTATIN CA 40 MG TABLET (FP) ONE (21:36)
[2022-12-21] MEDS ORDERED: diazePAM 5 MG TABLET ONE (21:36)
[2022-12-21] MEDS ORDERED: INSULIN (LEVEMIR) 100 UNITS/ML UNITS SQ ONE (21:38)
[2022-12-21] MEDS: ATORVASTATIN CA 40 MG TABLET (FP) PO SCH (21:49)
[2022-12-21] MEDS: rOPINIRole HCL 1 MG TABLET (FP) PO SCH (21:49)
[2022-12-21] MEDS: PREGABALIN 100 MG CAPSULE PO SCH (21:49)
[2022-12-21] MEDS: diazePAM 5 MG TABLET PO SCH (21:50)
[2022-12-21] MEDS: SODIUM CHLORIDE 1,000 ML IV SCH (22:29)
[2022-12-22] MEDS: INSULIN SLIDING SCALE (NOVOLOG) 1 VIAL SQ SCH ×4 (06:34→21:49)
[2022-12-22] MEDS: GABAPENTIN 300 MG CAPSULE PO SCH ×3 (06:34→21:47)
[2022-12-22] MEDS: INSULIN (LEVEMIR) 100 UNITS/ML UNITS SQ SCH ×2 (06:34→21:49)
[2022-12-22] MEDS: ASPIRIN 81 MG CHEWABLE TABLETS PO SCH (09:20)
[2022-12-22] MEDS: CYANOCOBALAMIN 1,000 MCG TABLET (FP) PO SCH (09:20)
[2022-12-22] MEDS: traMADol HCL 50 MG TABLET PO PRN (09:20)
[2022-12-22] MEDS: ENOXAPARIN NA (PORCINE) 40 MG/0.4 ML DISP.SYRIN SQ SCH (09:20)
[2022-12-22] MEDS: BUDESONIDE/FORMETEROL FUMARATE 80/4.5 mcg INHALER IH SCH ×2 (09:21→23:08)
[2022-12-22] MEDS ORDERED: FLU VACCINE (FLULAVAL) PF 60 MCG/0.5 ML SYRINGE 2023-2024 IM ONE (10:00)
[2022-12-22] MEDS ORDERED: RAMIPRIL 5 MG CAPSULE PO SCH (10:00)
[2022-12-22] MEDS ORDERED: INSULIN (NOVOLOG) ASPART 100 UNITS/ML 10ML VIAL ONE (21:04)
[2022-12-22] MEDS: diazePAM 5 MG TABLET PO SCH (21:47)
[2022-12-22] MEDS: ATORVASTATIN CA 40 MG TABLET (FP) PO SCH (21:47)
[2022-12-22] MEDS: PREGABALIN 100 MG CAPSULE PO SCH (21:48)
[2022-12-22] MEDS: rOPINIRole HCL 1 MG TABLET (FP) PO SCH (22:23)
[2022-12-23] MEDS: GABAPENTIN 300 MG CAPSULE PO SCH ×3 (06:10→21:59)
[2022-12-23] MEDS: INSULIN (LEVEMIR) 100 UNITS/ML UNITS SQ SCH ×2 (06:40→21:54)
[2022-12-23] MEDS: INSULIN SLIDING SCALE (NOVOLOG) 1 VIAL SQ SCH ×4 (06:41→21:58)
[2022-12-23] MEDS ORDERED: INSULIN (LEVEMIR) 100 UNITS/ML UNITS SQ SCH (07:08)
[2022-12-23] MEDS: ASPIRIN 81 MG CHEWABLE TABLETS PO SCH (09:22)
[2022-12-23] MEDS: traMADol HCL 50 MG TABLET PO PRN ×2 (09:22→17:00)
[2022-12-23] MEDS: ENOXAPARIN NA (PORCINE) 40 MG/0.4 ML DISP.SYRIN SQ SCH (09:22)
[2022-12-23] MEDS: CYANOCOBALAMIN 1,000 MCG TABLET (FP) PO SCH (09:22)
[2022-12-23] MEDS: BUDESONIDE/FORMETEROL FUMARATE 80/4.5 mcg INHALER IH SCH ×2 (09:23→22:58)
[2022-12-23] MEDS ORDERED: rOPINIRole HCL 1 MG TABLET (FP) PO SCH (11:15)
[2022-12-23] MEDS ORDERED: INSULIN (NOVOLOG) ASPART 100 UNITS/ML 10ML VIAL ONE ×2 (11:34→21:48)
[2022-12-23] MEDS ORDERED: MAGNESIUM 2GM/50ML STERILE WATER IVPB IVPB ONE (13:55)
[2022-12-23 18:18] LABS: PH,URINE 5.5 (5.0-8.0); URINE APPEARANCE CLEAR; URINE BILIRUBIN NEGATIVE (NEGATIVE); URINE COLOR YELLOW; URINE GLUCOSE (UA) 3+ (NEGATIVE); URINE KETONE TRACE (NEGATIVE); URINE LEUK ESTERASE NEGATIVE (NEGATIVE); URINE NITRITE NEGATIVE (NEGATIVE); URINE PROTEIN NEGATIVE (NEGATIVE); URINE UROBILINOGEN 0.2 mg/dL (0.2-1.0)
[2022-12-23] MEDS: PREGABALIN 100 MG CAPSULE PO SCH (21:59)
[2022-12-23] MEDS: diazePAM 5 MG TABLET PO SCH (21:59)
[2022-12-23] MEDS: ATORVASTATIN CA 40 MG TABLET (FP) PO SCH (22:00)
[2022-12-23] MEDS: rOPINIRole HCL 1 MG TABLET (FP) PO SCH (22:00)
[2022-12-23 23:02] VITALS: RESP 18
[2022-12-24] MEDS: GABAPENTIN 300 MG CAPSULE PO SCH ×3 (06:00→22:04)
[2022-12-24] MEDS: traMADol HCL 50 MG TABLET PO PRN ×2 (06:00→17:46)
[2022-12-24] MEDS: INSULIN SLIDING SCALE (NOVOLOG) 1 VIAL SQ SCH ×4 (08:01→22:05)
[2022-12-24] MEDS: INSULIN (LEVEMIR) 100 UNITS/ML UNITS SQ SCH ×2 (08:05→22:05)
[2022-12-24] MEDS: ASPIRIN 81 MG CHEWABLE TABLETS PO SCH (09:52)
[2022-12-24] MEDS: CYANOCOBALAMIN 1,000 MCG TABLET (FP) PO SCH (09:52)
[2022-12-24] MEDS: ENOXAPARIN NA (PORCINE) 40 MG/0.4 ML DISP.SYRIN SQ SCH (09:53)
[2022-12-24] MEDS: rOPINIRole HCL 1 MG TABLET (FP) PO SCH ×2 (09:53→22:04)
[2022-12-24] MEDS: BUDESONIDE/FORMETEROL FUMARATE 80/4.5 mcg INHALER IH SCH ×2 (09:55→22:13)
[2022-12-24 11:58] VITALS: BMI 19.3
[2022-12-24] MEDS ORDERED: INSULIN (NOVOLOG) ASPART 100 UNITS/ML 10ML VIAL ONE (18:00)
[2022-12-24] MEDS: diazePAM 5 MG TABLET PO SCH (22:03)
[2022-12-24] MEDS: PREGABALIN 100 MG CAPSULE PO SCH (22:04)
[2022-12-24] MEDS: ATORVASTATIN CA 40 MG TABLET (FP) PO SCH (22:04)
[2022-12-25] MEDS: traMADol HCL 50 MG TABLET PO PRN (01:06)
[2022-12-25] MEDS ORDERED: INSULIN (NOVOLOG) ASPART 100 UNITS/ML 10ML VIAL ONE (06:03)
[2022-12-25] MEDS: GABAPENTIN 300 MG CAPSULE PO SCH (06:17)
[2022-12-25] MEDS: INSULIN (LEVEMIR) 100 UNITS/ML UNITS SQ SCH (06:18)
[2022-12-25] MEDS: INSULIN SLIDING SCALE (NOVOLOG) 1 VIAL SQ SCH ×2 (06:18→12:02)
[2022-12-25] MEDS: ASPIRIN 81 MG CHEWABLE TABLETS PO SCH (09:53)
[2022-12-25] MEDS: rOPINIRole HCL 1 MG TABLET (FP) PO SCH (09:53)
[2022-12-25] MEDS: CYANOCOBALAMIN 1,000 MCG TABLET (FP) PO SCH (09:53)
[2022-12-25] MEDS: ENOXAPARIN NA (PORCINE) 40 MG/0.4 ML DISP.SYRIN SQ SCH (09:54)
[2022-12-25] MEDS: BUDESONIDE/FORMETEROL FUMARATE 80/4.5 mcg INHALER IH SCH (09:54)
[2022-12-25 10:29] VITALS: BP 102/60; PULSE 82; TEMP 97.7
== END 2022-12-25 12:44 | DRG 312 ==
LOC: JER 14:06 → JERBED 17:45 → J4W 12-21 22:06 → OBSVTOIN 12-22 11:06 → J8W 12-23 19:04
PROVIDERS: ADMIT Internal Medicine; ATTEND Family Medicine
DX: R55 Syncope and collapse (principal); I10 Essential (primary) hypertension; E78.5 Hyperlipidemia, unspecified; E11.40 Type 2 diabetes mellitus with diabetic neuropathy, unspecified; E11.51 Type 2 diabetes mellitus with diabetic peripheral angiopathy without gangrene; Z98.84 Bariatric surgery status; M54.9 Dorsalgia, unspecified; J44.9 Chronic obstructive pulmonary disease, unspecified; M79.7 Fibromyalgia; E11.65 Type 2 diabetes mellitus with hyperglycemia; G44.209 Tension-type headache, unspecified, not intractable; W18.30XA Fall on same level, unspecified, initial encounter; Y92.099 Unspecified place in other non-institutional residence as the place of occurrence of the external cause; Y99.9 Unspecified external cause status
CPT/HCPCS: 36415; 70450-TC; 71045-TC-FY; 72125-TC; 72128-TC; 72131-TC; 72170-TC-FY; 80053; 80061; 81003; 82962; 83036; 83735; 84100; 84484; 85025; 85610; 85730; 86850; 86900; 86901; 87086; 87635; 93005; 93010; 93306-TC; 93880-TC; 97116-GP; 97162-GP; 99285-25; G0378

== ENCOUNTER 2023-01-29 13:33 | Emergency (ER) | payer OTHER ==
[2023-01-29 14:08] VITALS: BP 113/80; PULSE 78; RESP 16; TEMP 97.6; BMI 20.5
[2023-01-29] MEDS ORDERED: MAG HYDROX/AL HYDROX/SIMETH 30 ML UNIT-DOSE CUP PO ONE (14:10)
[2023-01-29] MEDS ORDERED: morphine CARPU-JECT 4 MG/1 ML DISP.SYRIN IVPUSH ONE (14:10)
[2023-01-29] MEDS ORDERED: ACETAMINOPHEN 1000 MG/100 ML BAG IVPB ONE (14:10)
[2023-01-29] MEDS ORDERED: FAMOTIDINE 20 MG/50 ML IVPB 20 MG/50 ML MG IVPB ONE ×2 (14:10→15:27)
[2023-01-29] MEDS ORDERED: ONDANSETRON 4 MG/2 ML VIAL IVPUSH ONE (14:11)
[2023-01-29] MEDS ORDERED: LACTATED RINGERS SOLUTION 1,000 ML/1,000 ML INFUS.BAG IV SCH (14:15)
[2023-01-29] MEDS ORDERED: ACETAMINOPHEN INJECTION 100 ML IVPB ONE (14:39)
[2023-01-29] MEDS ORDERED: MAG HYDROX/AL HYDROX/SIMETH 30 ML UNIT-DOSE CUP ONE (14:39)
[2023-01-29] MEDS ORDERED: ONDANSETRON 4 MG/2 ML VIAL ONE (14:39)
[2023-01-29] MEDS ORDERED: morphine SULFATE 4 MG/ML VIAL ONE (14:39)
[2023-01-29 15:08] LABS: BASO % 2.1 % (0-2.0); HEMATOCRIT 37.3 % (32.4-45.2); HEMOGLOBIN 12.4 GM/dL (10.7-15.3); LYMPH % 41.5 % (8-40); MCHC 33.2 g/dl (32.0-36.0); MEAN CELL VOLUME 90.4 fl (80-96); MEAN PLT VOLUME 8.6 fl (7.5-11.1); MONO % 8.5 % (3.8-10.2); NEUT % 44.9 % (42.8-82.8); PLATELET COUNT 221 10^3/uL (134-434); RBC 4.13 M/mm3 (3.60-5.2); RDW 12.6 % (11.6-15.6); WHITE BLOOD COUNT 5.3 K/mm3 (4.0-10.0)
[2023-01-29 15:11] LABS: VENOUS BASE EXCESS 4.8 mmol/L (-2-2); VENOUS O2 SATURATION 15.6 % (70-80); VENOUS PCO2 41.2 mmHg (38-52); VENOUS PH 7.465 (7.310-7.410)
[2023-01-29 15:15] LABS: INR 0.98 (0.83-1.09); PROTHROMBIN TIME (PATIENT) 11.4 SEC (9.7-13.0)
[2023-01-29 15:18] LABS: ACTIVATED PTT 32.4 SECONDS (25.2-36.5)
[2023-01-29 15:28] LABS: POTASSIUM 3.7 mmol/L (3.5-5.1)
[2023-01-29 15:30] LABS: CALCIUM 9.5 mg/dL (8.5-10.1)
[2023-01-29 15:31] LABS: ALBUMIN 3.5 g/dl (3.4-5.0); BLOOD UREA NITROGEN 13.7 mg/dL (7-18)
[2023-01-29 15:34] LABS: CREATININE 0.7 mg/dL (0.55-1.3)
[2023-01-29 15:36] LABS: BILIRUBIN,TOTAL 0.4 mg/dL (0.2-1)
== END 2023-01-29 17:13 | disposition left against medical advice (07) ==
LOC: JER 13:33
PROC: 3E033GC Introduction of Other Therapeutic Substance into Peripheral Vein, Percutaneous Approach (ICD-10-PCS; principal; 2023-01-29)
PROC: 3E033NZ Introduction of Analgesics, Hypnotics, Sedatives into Peripheral Vein, Percutaneous Approach (ICD-10-PCS; 2023-01-29)
PROC: 3E033GC Introduction of Other Therapeutic Substance into Peripheral Vein, Percutaneous Approach (ICD-10-PCS; 2023-01-29)
PROC: 3E033GC Introduction of Other Therapeutic Substance into Peripheral Vein, Percutaneous Approach (ICD-10-PCS; 2023-01-29)
DX: R10.13 Epigastric pain (principal); Z53.21 Procedure and treatment not carried out due to patient leaving prior to being seen by health care provider; R10.12 Left upper quadrant pain; R11.0 Nausea; R63.0 Anorexia; M54.9 Dorsalgia, unspecified
CPT/HCPCS: 36415; 71045-TC-FY; 80053; 82803; 82962; 83605; 83690; 85025; 85610; 85730; 86850; 86900; 86901; 93005; 93010; 99285-25

== ENCOUNTER 2023-03-22 16:25 | Inpatient (IN) | payer OTHER ==
[2023-03-22 17:26] LABS: BASO % 1.4 % (0-2.0); EOS % 0.1 % (0-4.5); HEMATOCRIT 39.7 % (32.4-45.2); HEMOGLOBIN 13.1 GM/dL (10.7-15.3); LYMPH % 25.6 % (8-40); MCH 29.9 pg (25.7-33.7); MEAN CELL VOLUME 90.8 fl (80-96); MEAN PLT VOLUME 8.7 fl (7.5-11.1); MONO % 8.7 % (3.8-10.2); NEUT % 64.2 % (42.8-82.8); PLATELET COUNT 355 10^3/uL (134-434); RBC 4.37 M/mm3 (3.60-5.2); RDW 13.4 % (11.6-15.6); WHITE BLOOD COUNT 6.9 K/mm3 (4.0-10.0)
[2023-03-22 17:33] LABS: INR 0.94 (0.83-1.09); PROTHROMBIN TIME (PATIENT) 10.9 SEC (9.7-13.0)
[2023-03-22 17:35] LABS: VENOUS O2 SATURATION 38.7 % (70-80)
[2023-03-22 17:36] LABS: ACTIVATED PTT 30.3 SECONDS (25.2-36.5)
[2023-03-22 17:39] LABS: VENOUS PH 7.145 (7.310-7.410)
[2023-03-22 18:13] LABS: LACTIC ACID 2.3 mmol/L (0.4-2.0)
[2023-03-22 18:16] LABS: CHLORIDE 100 mmol/L (98-107); POTASSIUM 5.8 mmol/L (3.5-5.1); SODIUM 132 mmol/L (136-145)
[2023-03-22 18:18] LABS: CALCIUM 10.8 mg/dL (8.5-10.1)
[2023-03-22 18:19] LABS: ALBUMIN 4.1 g/dl (3.4-5.0); ANION GAP 21 mmol/L (4-13); CO2 12 mmol/L (21-32)
[2023-03-22 18:21] LABS: BLOOD UREA NITROGEN 17.1 mg/dL (7-18)
[2023-03-22 18:22] LABS: CREATININE 1.2 mg/dL (0.55-1.3); SGOT/AST 21 U/L (15-37); SGPT/ALT 27 U/L (13-61)
[2023-03-22 18:24] LABS: CHOLESTEROL 240 mg/dL (50-200); TOT PROT 8.5 g/dl (6.4-8.2)
[2023-03-22 18:25] LABS: BILIRUBIN,TOTAL 0.9 mg/dL (0.2-1); LDL CHOLESTEROL (ONLY SJRH) 137 mg/dL (5-100)
[2023-03-22 18:26] LABS: ALK PHOS 102 U/L (45-117); HDL CHOLESTEROL 83 mg/dL (40-60)
[2023-03-22 18:39] LABS: GLUCOSE,RANDOM 431 mg/dL (74-106)
[2023-03-22] MEDS ORDERED: INSULIN REGULAR HUMAN 100 UNITS/ML *VIAL ONE (19:04)
[2023-03-22] MEDS: INSULIN REGULAR HUMAN 100 UNITS/ML *VIAL* (FOR IVP) IVPUSH ONE (19:09)
[2023-03-22] MEDS: SODIUM CHLORIDE 0.9% 500 ML INFUS.BAG IV ONE (19:09)
[2023-03-22] MEDS: LACTATED RINGERS SOLUTION 1000 ML INFUS.BAG IV ONE (19:09)
[2023-03-22] MEDS ORDERED: ACETAMINOPHEN INJECTION 100 ML IVPB ONE (19:48)
[2023-03-22] MEDS: INSULIN REGULAR 100 UNITS in SODIUM CHLORIDE 99 ML IVPB SCH ×3 (20:05→23:44)
[2023-03-22] MEDS: ACETAMINOPHEN 1000 MG/100 ML BAG IVPB ONE (20:06)
[2023-03-22] MEDS: morphine CARPU-JECT 2 MG/1 ML DISP.SYRIN IVPUSH ONE (20:55)
[2023-03-22] MEDS: LACTATED RINGERS SOLUTION 1,000 ML/1,000 ML INFUS.BAG IV SCH (21:15)
[2023-03-22] MEDS: MUPIROCIN 2% TOPICAL OINTMENT FOR DECOLONIZATION NS SCH (22:17)
[2023-03-22] MEDS: CHLORHEXIDINE GLUCONATE 4% CLEANSER FOR DECOLONIZATION TP SCH (22:17)
[2023-03-22] MEDS: D5-1/2NS+20 MEQ KCL - 20 MEQ/1,000 ML INFUS.BAG IV SCH (23:43)
[2023-03-23 00:21] LABS: LACTIC ACID 2.6 mmol/L (0.4-2.0)
[2023-03-23 00:32] LABS: URINE APPEARANCE CLOUDY; URINE BILIRUBIN NEGATIVE (NEGATIVE); URINE COLOR YELLOW; URINE GLUCOSE (UA) 3+ (NEGATIVE); URINE KETONE 4+ (NEGATIVE); URINE LEUK ESTERASE NEGATIVE (NEGATIVE); URINE NITRITE NEGATIVE (NEGATIVE); URINE PROTEIN TRACE (NEGATIVE); URINE UROBILINOGEN 0.2 mg/dL (0.2-1.0)
[2023-03-23 00:49] LABS: POTASSIUM 3.5 mmol/L (3.5-5.1)
[2023-03-23 00:51] LABS: CALCIUM 9.4 mg/dL (8.5-10.1)
[2023-03-23 00:52] LABS: ALBUMIN 3.3 g/dl (3.4-5.0); BLOOD UREA NITROGEN 11.3 mg/dL (7-18); MAGNESIUM 1.7 mg/dL (1.8-2.4)
[2023-03-23 00:55] LABS: PHOSPHOROUS 1.4 mg/dL (2.5-4.9)
[2023-03-23 00:56] LABS: BILIRUBIN,TOTAL 0.6 mg/dL (0.2-1); TOT PROT 6.5 g/dl (6.4-8.2)
[2023-03-23 00:58] LABS: METHADONE, UR NEGATIVE (NEGATIVE); PHENCYCLIDINE,URINE NEGATIVE (NEGATIVE); URINE BARBITURATES NEGATIVE (NEGATIVE)
[2023-03-23 01:00] LABS: COCAINE, UR NEGATIVE (NEGATIVE); OPIATES, URI POSITIVE (NEGATIVE); URINE AMPHETAMINES NEGATIVE (NEGATIVE); URINE BENZODIAZEPINES POSITIVE (NEGATIVE)
[2023-03-23] MEDS: KCL 10 MEQ IVPB 10 MEQ/100 ML INFUS.BAG IVPB SCH (02:32)
[2023-03-23] MEDS: MAGNESIUM SULFATE IN WATER 2 GM/50 ML IVPB IVPB ONE (03:47)
[2023-03-23] MEDS: POTASSIUM PHOSPHATE 30 MM in DEXTROSE 5%-WATER - 250 ML IVPB ONE (03:47)
[2023-03-23 06:02] LABS: POTASSIUM 4.1 mmol/L (3.5-5.1)
[2023-03-23 06:03] LABS: CALCIUM 9.1 mg/dL (8.5-10.1)
[2023-03-23 06:04] LABS: BLOOD UREA NITROGEN 9.7 mg/dL (7-18); MAGNESIUM 1.4 mg/dL (1.8-2.4)
[2023-03-23 06:07] LABS: CREATININE 0.7 mg/dL (0.55-1.3); PHOSPHOROUS 1.6 mg/dL (2.5-4.9)
[2023-03-23] MEDS: INSULIN (LEVEMIR) 100 UNITS/ML UNITS SQ SCH (08:35)
[2023-03-23] MEDS ORDERED: INSULIN (LEVEMIR) 100 UNITS/ML UNITS SQ ONE (09:06)
[2023-03-23] MEDS: ENOXAPARIN NA (PORCINE) 40 MG/0.4 ML DISP.SYRIN SQ SCH (09:18)
[2023-03-23 09:21] LABS: HEMATOCRIT 34.5 % (32.4-45.2); HEMOGLOBIN 11.6 GM/dL (10.7-15.3); MCH 29.7 pg (25.7-33.7); MCHC 33.6 g/dl (32.0-36.0); MEAN CELL VOLUME 88.4 fl (80-96); MEAN PLT VOLUME 7.9 fl (7.5-11.1); PLATELET COUNT 319 10^3/uL (134-434); RDW 13.1 % (11.6-15.6); WHITE BLOOD COUNT 6.8 K/mm3 (4.0-10.0)
[2023-03-23 09:22] LABS: BASO % 2.2 % (0-2.0); EOS % 1.9 % (0-4.5); INR 0.9 (0.83-1.09); LYMPH % 43.5 % (8-40); MONO % 8.8 % (3.8-10.2); NEUT % 43.6 % (42.8-82.8); PROTHROMBIN TIME (PATIENT) 10.5 SEC (9.7-13.0)
[2023-03-23 09:24] LABS: ACTIVATED PTT 24.8 SECONDS (25.2-36.5)
[2023-03-23] MEDS ORDERED: PATIENT'S OWN MEDICATION (NON-FORMULARY) (Oxycodone Hcl [Oxaydo] 5 MG Tablet.Orl) PO PRN (11:10)
[2023-03-23] MEDS: INSULIN ASPART SLIDING SCALE (NOVOLOG) 1 VIAL SQ SCH (12:10)
[2023-03-23] MEDS: PANTOPRAZOLE 20 MG TABLET PO SCH (12:18)
[2023-03-23 12:32] LABS: URINE APPEARANCE TURBID; URINE BILIRUBIN NEGATIVE (NEGATIVE); URINE COLOR YELLOW; URINE GLUCOSE (UA) 1+ (NEGATIVE); URINE KETONE 1+ (NEGATIVE); URINE LEUK ESTERASE NEGATIVE (NEGATIVE); URINE NITRITE NEGATIVE (NEGATIVE); URINE PROTEIN TRACE (NEGATIVE); URINE UROBILINOGEN 0.2 mg/dL (0.2-1.0)
[2023-03-23] MEDS: GABAPENTIN 300 MG CAPSULE PO SCH (13:17)
[2023-03-23] MEDS: CYCLOBENZAPRINE HCL 10 MG TABLET (FP) PO SCH (13:17)
[2023-03-23 13:32] LABS: N-TERMINAL BNP 168.6 pg/ml (5-125)
[2023-03-23] MEDS: ACETAMINOPHEN 1000 MG/100 ML BAG IVPB ONE (17:05)
[2023-03-23] MEDS: ONDANSETRON 4 MG TABLET PO SCH (17:31)
[2023-03-23] MEDS: METOCLOPRAMIDE HCL 10 MG/10 ML UNIT DOSE CUP PO SCH (17:31)
[2023-03-23] MEDS: ATORVASTATIN CA 40 MG TABLET (FP) PO SCH (21:04)
[2023-03-23] MEDS: oxyCODONE HCL 5 MG TABLET PO PRN (21:44)
[2023-03-23] MEDS: rOPINIRole HCL 1 MG TABLET (FP) PO SCH (22:34)
[2023-03-24] MEDS ORDERED: INSULIN (LEVEMIR) 100 UNITS/ML UNITS SQ SCH (00:30)
[2023-03-24] MEDS: INSULIN (LEVEMIR) 100 UNITS/ML UNITS SQ SCH (06:24)
[2023-03-24] MEDS: INSULIN ASPART SLIDING SCALE (NOVOLOG) 1 VIAL SQ SCH (06:24)
[2023-03-24 07:47] LABS: HEMATOCRIT 35.1 % (32.4-45.2); MCH 30.1 pg (25.7-33.7); MCHC 34.2 g/dl (32.0-36.0); MEAN PLT VOLUME 8.3 fl (7.5-11.1); PLATELET COUNT 270 10^3/uL (134-434); RBC 3.99 M/mm3 (3.60-5.2); RDW 13.5 % (11.6-15.6); WHITE BLOOD COUNT 5.7 K/mm3 (4.0-10.0)
[2023-03-24 08:03] LABS: POTASSIUM 4.1 mmol/L (3.5-5.1)
[2023-03-24 08:06] LABS: MAGNESIUM 1.5 mg/dL (1.8-2.4)
[2023-03-24 08:08] LABS: ALBUMIN 2.8 g/dl (3.4-5.0); BLOOD UREA NITROGEN 4.5 mg/dL (7-18)
[2023-03-24 08:09] LABS: CREATININE 0.5 mg/dL (0.55-1.3); PHOSPHOROUS 2.8 mg/dL (2.5-4.9)
[2023-03-24 08:10] LABS: TOT PROT 5.9 g/dl (6.4-8.2)
[2023-03-24 08:11] LABS: BILIRUBIN,TOTAL 0.4 mg/dL (0.2-1)
[2023-03-24] MEDS ORDERED: INSULIN (NOVOLOG) ASPART 100 UNITS/ML 10ML VIAL ONE (10:52)
[2023-03-24] MEDS: SODIUM CHLORIDE 500 ML IV ONE (13:29)
[2023-03-24] MEDS: TAMSULOSIN HCL 0.4 MG CAP PO ONE (13:30)
[2023-03-25] MEDS: METOCLOPRAMIDE HCL 10 MG TABLET (FP) PO SCH (06:07)
[2023-03-25] MEDS: CYCLOBENZAPRINE HCL 10 MG TABLET (FP) PO SCH (06:07)
[2023-03-25] MEDS: ONDANSETRON 4 MG TABLET PO SCH (06:12)
[2023-03-25] MEDS: PANTOPRAZOLE 20 MG TABLET PO SCH (06:12)
[2023-03-25] MEDS ORDERED: MUPIROCIN 2% TOPICAL OINTMENT FOR DECOLONIZATION NS SCH (10:00)
[2023-03-25] MEDS: ENOXAPARIN NA (PORCINE) 40 MG/0.4 ML DISP.SYRIN SQ SCH (10:19)
[2023-03-25] MEDS: GABAPENTIN 300 MG CAPSULE PO SCH (10:19)
[2023-03-25] MEDS: D5-1/2NS+20 MEQ KCL - 20 MEQ/1,000 ML INFUS.BAG IV SCH (10:21)
[2023-03-25] MEDS: ATORVASTATIN CA 40 MG TABLET (FP) PO SCH (21:26)
[2023-03-25] MEDS: rOPINIRole HCL 1 MG TABLET (FP) PO SCH (21:28)
[2023-03-25] MEDS ORDERED: CHLORHEXIDINE GLUCONATE 4% CLEANSER FOR DECOLONIZATION TP SCH (22:00)
[2023-03-26] MEDS: INSULIN (LEVEMIR) 100 UNITS/ML UNITS SQ SCH (00:32)
[2023-03-26] MEDS: oxyCODONE HCL 5 MG TABLET PO ONE (02:18)
[2023-03-26 08:52] LABS: BASO % 0.8 % (0-2.0); EOS % 2.6 % (0-4.5); HEMATOCRIT 30.4 % (32.4-45.2); HEMOGLOBIN 10.4 GM/dL (10.7-15.3); LYMPH % 29.6 % (8-40); MCH 30.2 pg (25.7-33.7); MCHC 34.3 g/dl (32.0-36.0); MEAN CELL VOLUME 88.1 fl (80-96); MEAN PLT VOLUME 8.2 fl (7.5-11.1); MONO % 11.2 % (3.8-10.2); NEUT % 55.8 % (42.8-82.8); PLATELET COUNT 177 10^3/uL (134-434); RBC 3.45 M/mm3 (3.60-5.2); RDW 13.1 % (11.6-15.6); WHITE BLOOD COUNT 5.6 K/mm3 (4.0-10.0)
[2023-03-26 09:00] LABS: POTASSIUM 3.6 mmol/L (3.5-5.1)
[2023-03-26 09:06] LABS: ALBUMIN 2.5 g/dl (3.4-5.0); BLOOD UREA NITROGEN 5.2 mg/dL (7-18); CALCIUM 8.8 mg/dL (8.5-10.1)
[2023-03-26 09:09] LABS: CREATININE 0.4 mg/dL (0.55-1.3)
[2023-03-26 09:10] LABS: BILIRUBIN,TOTAL 0.5 mg/dL (0.2-1); TOT PROT 5.6 g/dl (6.4-8.2)
[2023-03-26] MEDS ORDERED: PIPERACILLIN/TAZOB 3.375 GM 3.375 GM in DEXTROSE 5%-WATER - 50 ML IVPB SCH ×2 (14:15→18:00)
[2023-03-26] MEDS: PIPERACILLIN/TAZOB 3.375 GM 3.375 GM in DEXTROSE 5%-WATER - 50 ML IVPB SCH (14:56)
[2023-03-26] MEDS: traMADol HCL 50 MG TABLET PO PRN (15:46)
[2023-03-26 17:10] LABS: EPI CELLS 25 /uL (0-25.1); HYALINE CASTS 0 /uL (0-3.1); PH,URINE 5.5 (5.0-8.0); URINE APPEARANCE CLOUDY; URINE BACTERIA >9,000 /uL (0-1359); URINE BILIRUBIN NEGATIVE (NEGATIVE); URINE COLOR YELLOW; URINE GLUCOSE (UA) 1+ (NEGATIVE); URINE KETONE NEGATIVE (NEGATIVE); URINE LEUK ESTERASE 3+ (NEGATIVE); URINE NITRITE POSITIVE (NEGATIVE); URINE PROTEIN NEGATIVE (NEGATIVE); URINE UROBILINOGEN 0.2 mg/dL (0.2-1.0); URINE WBC 1423 /uL (0-25.8)
[2023-03-26 19:05] LABS: URINE RBC 69.2 /uL (0-23.9); YEAST PRESENT (NEGATIVE)
[2023-03-26] MEDS: CEFTRIAXONE 1 GM in DEXTROSE 5%-WATER - 50 ML IVPB SCH (21:15)
[2023-03-27] MEDS: INSULIN ASPART SLIDING SCALE (NOVOLOG) 1 VIAL SQ SCH (06:17)
[2023-03-27 09:24] LABS: BASO % 0.8 % (0-2.0); EOS % 4.8 % (0-4.5); HEMATOCRIT 31.3 % (32.4-45.2); HEMOGLOBIN 10.7 GM/dL (10.7-15.3); LYMPH % 31.1 % (8-40); MCH 30.1 pg (25.7-33.7); MCHC 34.2 g/dl (32.0-36.0); MEAN PLT VOLUME 8.9 fl (7.5-11.1); MONO % 10.3 % (3.8-10.2); PLATELET COUNT 189 10^3/uL (134-434); RBC 3.55 M/mm3 (3.60-5.2); RDW 12.9 % (11.6-15.6); WHITE BLOOD COUNT 6.2 K/mm3 (4.0-10.0)
[2023-03-27 09:42] LABS: POTASSIUM 4.1 mmol/L (3.5-5.1)
[2023-03-27 09:46] LABS: ALBUMIN 2.5 g/dl (3.4-5.0); CALCIUM 8.6 mg/dL (8.5-10.1)
[2023-03-27 09:47] LABS: BLOOD UREA NITROGEN 4.9 mg/dL (7-18)
[2023-03-27 09:49] LABS: CREATININE 0.5 mg/dL (0.55-1.3)
[2023-03-27 09:51] LABS: BILIRUBIN,TOTAL 0.3 mg/dL (0.2-1); TOT PROT 5.7 g/dl (6.4-8.2)
[2023-03-27 14:03] VITALS: BMI 21.2
[2023-03-27] MEDS: MEROPENEM 1 GM in DEXTROSE 5%-WATER 100 ML IVPB SCH (15:41)
[2023-03-28] MEDS ORDERED: INSULIN ASPART SLIDING SCALE (NOVOLOG) 1 VIAL SQ ONE (21:21)
[2023-03-29] MEDS ORDERED: traMADol HCL 50 MG TABLET PO SCH (07:45)
[2023-03-29] MEDS: oxyCODONE HCL 5 MG TABLET PO PRN (08:07)
[2023-03-29] MEDS: busPIRone HCL 10 MG TABLET (FP) PO SCH (15:05)
[2023-03-29] MEDS: NITROFURANTOIN MONOHYD/M-CRYST 100 MG CAPSULE PO SCH (16:44)
[2023-03-29] MEDS ORDERED: INSULIN ASPART SLIDING SCALE (NOVOLOG) 1 VIAL SQ ONE (21:30)
[2023-03-30 05:13] VITALS: RESP 18
[2023-03-30] MEDS: INSULIN (LEVEMIR) 100 UNITS/ML UNITS SQ SCH (06:52)
[2023-03-30] MEDS: INSULIN ASPART SLIDING SCALE (NOVOLOG) 1 VIAL SQ SCH (06:52)
[2023-03-31] MEDS: INSULIN (NOVOLOG) ASPART 100 UNITS/ML 10ML VIAL SQ ONE (02:13)
[2023-03-31] MEDS ORDERED: INSULIN ASPART SLIDING SCALE (NOVOLOG) 1 VIAL SQ ONE (06:55)
[2023-03-31] MEDS ORDERED: INSULIN (LEVEMIR) 100 UNITS/ML UNITS SQ ONE (06:55)
[2023-03-31] MEDS ORDERED: INSULIN (LEVEMIR) 100 UNITS/ML UNITS SQ SCH (07:29)
[2023-03-31 09:35] VITALS: BP 120/55; PULSE 94; TEMP 98.1
[2023-03-31] MEDS ORDERED: VANCOMYCIN ORAL SOLUTION 125 MG/2.5 ML PO SCH (12:00)
== END 2023-03-31 14:15 | DRG 638 ==
LOC: JER 16:25 → JERBED 18:34 → JICU 21:51 → J6S 03-24 23:34
PROVIDERS: ADMIT Family Medicine; ATTEND Family Medicine
DX: E11.10 Type 2 diabetes mellitus with ketoacidosis without coma (principal); J44.0 Chronic obstructive pulmonary disease with (acute) lower respiratory infection; N39.0 Urinary tract infection, site not specified; Z16.12 Extended spectrum beta lactamase (ESBL) resistance; E11.43 Type 2 diabetes mellitus with diabetic autonomic (poly)neuropathy; I10 Essential (primary) hypertension; E78.5 Hyperlipidemia, unspecified; R33.9 Retention of urine, unspecified; F12.90 Cannabis use, unspecified, uncomplicated; M51.37 Other intervertebral disc degeneration, lumbosacral region; M54.16 Radiculopathy, lumbar region; M54.50 Low back pain, unspecified; M51.9 Unspecified thoracic, thoracolumbar and lumbosacral intervertebral disc disorder; M47.816 Spondylosis without myelopathy or radiculopathy, lumbar region; M48.061 Spinal stenosis, lumbar region without neurogenic claudication; Z98.84 Bariatric surgery status
CPT/HCPCS: 0241U-QW; 36415; 70450-TC; 71045-TC-FY; 72131-TC; 72148-TC; 72170-TC-FY; 74176-TC; 80048; 80053; 80061; 80307; 81003; 82010; 82140; 82550; 82607; 82746; 82803; 82962; 83036; 83605; 83735; 83880; 84100; 84425; 84439; 84443; 84484; 85025; 85027; 85610; 85730; 86850; 86900; 86901; 87086; 87186; 87635; 93005; 93010; 97116-GP; 97162-GP; 99285-25; J0131

== ENCOUNTER 2023-05-16 14:02 | Inpatient (IN) | payer OTHER ==
[2023-05-16 15:02] LABS: EOS % 0.1 % (0-4.5); HEMATOCRIT 38.6 % (32.4-45.2); HEMOGLOBIN 11.5 GM/dL (10.7-15.3); LYMPH % 8.1 % (8-40); MCH 29.9 pg (25.7-33.7); MCHC 29.8 g/dl (32.0-36.0); MEAN CELL VOLUME 100.1 fl (80-96); MEAN PLT VOLUME 9.4 fl (7.5-11.1); NEUT % 83.8 % (42.8-82.8); PLATELET COUNT 300 10^3/uL (134-434); RBC 3.86 M/mm3 (3.60-5.2); RDW 14.6 % (11.6-15.6); WHITE BLOOD COUNT 7.8 K/mm3 (4.0-10.0)
[2023-05-16 15:34] LABS: VENOUS BASE EXCESS -24.9 mmol/L (-2-2); VENOUS O2 SATURATION 63.8 % (70-80); VENOUS PCO2 19.9 mmHg (38-52)
[2023-05-16 15:36] LABS: VENOUS PH 7.003 (7.310-7.410)
[2023-05-16 15:37] LABS: INR 0.86 (0.83-1.09)
[2023-05-16 15:39] LABS: ACTIVATED PTT 25.9 SECONDS (25.2-36.5)
[2023-05-16 15:58] LABS: CHLORIDE 96 mmol/L (98-107); POTASSIUM 5.8 mmol/L (3.5-5.1); SODIUM 126 mmol/L (136-145)
[2023-05-16 16:00] LABS: CALCIUM 9.5 mg/dL (8.5-10.1)
[2023-05-16 16:01] LABS: ALBUMIN 3.5 g/dl (3.4-5.0); ANION GAP 25 mmol/L (4-13); CO2 5 mmol/L (21-32); MAGNESIUM 2.6 mg/dL (1.8-2.4)
[2023-05-16 16:04] LABS: CREATININE 2.4 mg/dL (0.55-1.3); SGOT/AST 13 U/L (15-37); SGPT/ALT 35 U/L (13-61)
[2023-05-16] MEDS: LACTATED RINGERS SOLUTION 1000 ML INFUS.BAG IV ONE ×2 (16:04→20:07)
[2023-05-16 16:05] LABS: BILIRUBIN,TOTAL 0.6 mg/dL (0.2-1); TOT PROT 7.1 g/dl (6.4-8.2)
[2023-05-16 16:07] LABS: ALK PHOS 110 U/L (45-117)
[2023-05-16 16:35] LABS: GLUCOSE,RANDOM 897 mg/dL (74-106)
[2023-05-16] MEDS: SODIUM BICARBONATE 8.4% - 150 MEQ in DEXTROSE 5%-WATER - 950 ML IVPB SCH (17:04)
[2023-05-16] MEDS: INSULIN REGULAR 100 UNITS in SODIUM CHLORIDE 99 ML IVPB SCH (17:04)
[2023-05-16 19:35] LABS: CHLORIDE 101 mmol/L (98-107); POTASSIUM 4.2 mmol/L (3.5-5.1); SODIUM 131 mmol/L (136-145)
[2023-05-16 19:37] LABS: CALCIUM 9.3 mg/dL (8.5-10.1)
[2023-05-16 19:38] LABS: ANION GAP 18 mmol/L (4-13); CO2 11 mmol/L (21-32)
[2023-05-16 19:41] LABS: CREATININE 2.1 mg/dL (0.55-1.3)
[2023-05-16 19:45] LABS: GLUCOSE,RANDOM 731 mg/dL (74-106)
[2023-05-16] MEDS: SODIUM CHLORIDE 0.45% 1,000 ML IV SCH (21:06)
[2023-05-16] MEDS: HEPARIN NA (PORCINE) 5,000 UNITS/ML 1ML VIAL SQ SCH (21:07)
[2023-05-16 21:35] LABS: VENOUS BASE EXCESS -7.7 mmol/L (-2-2); VENOUS O2 SATURATION 91.7 % (70-80); VENOUS PCO2 29.1 mmHg (38-52); VENOUS PH 7.371 (7.310-7.410)
[2023-05-16 21:42] LABS: CHLORIDE 104 mmol/L (98-107); POTASSIUM 3.4 mmol/L (3.5-5.1); SODIUM 134 mmol/L (136-145)
[2023-05-16 21:43] LABS: CALCIUM 9.1 mg/dL (8.5-10.1)
[2023-05-16 21:44] LABS: ANION GAP 11 mmol/L (4-13); CO2 19 mmol/L (21-32)
[2023-05-16 21:52] LABS: CHLORIDE 105 mmol/L (98-107); POTASSIUM 3.4 mmol/L (3.5-5.1); SODIUM 135 mmol/L (136-145)
[2023-05-16 21:53] LABS: CALCIUM 9.2 mg/dL (8.5-10.1)
[2023-05-16 21:54] LABS: ANION GAP 10 mmol/L (4-13); BLOOD UREA NITROGEN 67.8 mg/dL (7-18); CO2 21 mmol/L (21-32)
[2023-05-16 21:54] LABS: GLUCOSE,RANDOM 608 mg/dL (74-106)
[2023-05-16 21:57] LABS: CREATININE 1.9 mg/dL (0.55-1.3)
[2023-05-16] MEDS: CHLORHEXIDINE GLUCONATE 4% CLEANSER FOR DECOLONIZATION TP SCH (21:57)
[2023-05-16] MEDS: MUPIROCIN 2% TOPICAL OINTMENT FOR DECOLONIZATION NS SCH (21:57)
[2023-05-16] MEDS: CEFTRIAXONE 1 GM in DEXTROSE 5%-WATER - 50 ML IVPB SCH (21:59)
[2023-05-16 22:00] LABS: GLUCOSE,RANDOM 578 mg/dL (74-106)
[2023-05-16] MEDS: PANTOPRAZOLE SODIUM 40 MG VIAL IVPUSH ONE (22:05)
[2023-05-16] MEDS: SODIUM CHLORIDE 0.45%/POT 20 MEQ/1,000 ML INFUS.BAG IV SCH (23:25)
[2023-05-17] MEDS: KCL 20 MEQ PREMIX BAG 20 MEQ/100 ML INFUS.BAG IVPB SCH (00:04)
[2023-05-17] MEDS ORDERED: INSULIN REGULAR HUMAN 100 UNITS/ML *VIAL ONE (01:19)
[2023-05-17] MEDS: D5-1/2NS+40 MEQ KCL - 40 MEQ/1,000 ML INFUS.BAG IV SCH (02:50)
[2023-05-17] MEDS: INSULIN REGULAR 100 UNITS in SODIUM CHLORIDE 99 ML IVPB SCH ×2 (03:00→06:56)
[2023-05-17 05:28] LABS: EPI CELLS 12 /uL (0-25.1); HYALINE CASTS 0 /uL (0-3.1); PH,URINE 5.5 (5.0-8.0); URINE APPEARANCE CLEAR; URINE BACTERIA 101 /uL (0-1359); URINE BILIRUBIN NEGATIVE (NEGATIVE); URINE COLOR YELLOW; URINE GLUCOSE (UA) 3+ (NEGATIVE); URINE KETONE 2+ (NEGATIVE); URINE LEUK ESTERASE NEGATIVE (NEGATIVE); URINE NITRITE NEGATIVE (NEGATIVE); URINE PROTEIN TRACE (NEGATIVE); URINE UROBILINOGEN 0.2 mg/dL (0.2-1.0)
[2023-05-17 05:33] LABS: CHLORIDE 109 mmol/L (98-107); SODIUM 139 mmol/L (136-145)
[2023-05-17 05:35] LABS: CALCIUM 8.7 mg/dL (8.5-10.1)
[2023-05-17 05:36] LABS: ANION GAP 2 mmol/L (4-13); BLOOD UREA NITROGEN 55.8 mg/dL (7-18); CO2 28 mmol/L (21-32); GLUCOSE,RANDOM 139 mg/dL (74-106); MAGNESIUM 1.9 mg/dL (1.8-2.4)
[2023-05-17 05:39] LABS: CREATININE 1.4 mg/dL (0.55-1.3); SGOT/AST 9 U/L (15-37); SGPT/ALT 24 U/L (13-61)
[2023-05-17 05:41] LABS: BILIRUBIN,TOTAL 0.3 mg/dL (0.2-1); TOT PROT 5.3 g/dl (6.4-8.2)
[2023-05-17 05:44] LABS: ALBUMIN 2.7 g/dl (3.4-5.0); ALK PHOS 69 U/L (45-117)
[2023-05-17] MEDS ORDERED: SODIUM PHOSPHATE - 0 MM in SODIUM CHLORIDE 250 ML IVPB ONE (05:50)
[2023-05-17 07:32] LABS: BASO % 0.3 % (0-2.0); EOS % 0.1 % (0-4.5); HEMATOCRIT 28.2 % (32.4-45.2); HEMOGLOBIN 9.4 GM/dL (10.7-15.3); LYMPH % 15.2 % (8-40); MCH 29.1 pg (25.7-33.7); MCHC 33.4 g/dl (32.0-36.0); MEAN CELL VOLUME 87.2 fl (80-96); MEAN PLT VOLUME 8.1 fl (7.5-11.1); MONO % 13.2 % (3.8-10.2); NEUT % 71.2 % (42.8-82.8); PLATELET COUNT 222 10^3/uL (134-434); RBC 3.24 M/mm3 (3.60-5.2); WHITE BLOOD COUNT 5.5 K/mm3 (4.0-10.0)
[2023-05-17] MEDS ORDERED: NAPH,MB-DB/K PH,MBDB POWDER PACKET PO SCH (08:00)
[2023-05-17] MEDS ORDERED: INSULIN (LEVEMIR) 100 UNITS/ML UNITS SQ ONE (08:19)
[2023-05-17] MEDS: INSULIN (LEVEMIR) 100 UNITS/ML UNITS SQ SCH (08:23)
[2023-05-17] MEDS: PANTOPRAZOLE SODIUM 40 MG VIAL IVPUSH SCH (09:43)
[2023-05-17] MEDS: MIDODRINE HCL 5 MG TABLET PO SCH (09:43)
[2023-05-17] MEDS: FLUDROCORTISONE ACETATE 0.1 MG TABLET (FP) PO SCH (09:43)
[2023-05-17 09:47] LABS: URINE RBC 29.6 /uL (0-23.9); URINE WBC 87.1 /uL (0-25.8)
[2023-05-17] MEDS ORDERED: INSULIN (LEVEMIR) 100 UNITS/ML UNITS SQ SCH (10:00)
[2023-05-17] MEDS: INSULIN (NOVOLOG) ASPART 100 UNITS/ML 10ML VIAL SQ SCH (10:20)
[2023-05-17] MEDS: SODIUM CHLORIDE IVPB ONE (10:23)
[2023-05-17] MEDS: SODIUM PHOSPHATE IVPB ONE (10:23)
[2023-05-17 10:49] LABS: PHENCYCLIDINE,URINE NEGATIVE (NEGATIVE); URINE BARBITURATES NEGATIVE (NEGATIVE)
[2023-05-17 10:50] LABS: URINE AMPHETAMINES NEGATIVE (NEGATIVE)
[2023-05-17 10:53] LABS: METHADONE, UR NEGATIVE (NEGATIVE)
[2023-05-17 10:57] LABS: COCAINE, UR POSITIVE (NEGATIVE); OPIATES, URI POSITIVE (NEGATIVE); URINE BENZODIAZEPINES POSITIVE (NEGATIVE)
[2023-05-17 11:27] LABS: POTASSIUM 4.2 mmol/L (3.5-5.1)
[2023-05-17 11:31] LABS: BLOOD UREA NITROGEN 45.9 mg/dL (7-18); CALCIUM 8.7 mg/dL (8.5-10.1)
[2023-05-17 11:32] LABS: MAGNESIUM 1.9 mg/dL (1.8-2.4)
[2023-05-17 11:34] LABS: PHOSPHOROUS 1.3 mg/dL (2.5-4.9)
[2023-05-17] MEDS: busPIRone HCL 10 MG TABLET (FP) PO SCH (12:13)
[2023-05-17] MEDS: CITALOPRAM HYDROBROMIDE 10 MG TABLET PO SCH (12:13)
[2023-05-17] MEDS: ACETAMINOPHEN 1000 MG/100 ML BAG IVPB ONE (13:19)
[2023-05-17] MEDS: KETOROLAC TROMETHAMINE 30 MG/1 ML VIAL IVPUSH PRN (13:27)
[2023-05-17 13:38] LABS: RETICULOCYTES 1.04 % (0.5-1.5)
[2023-05-17] MEDS: GABAPENTIN 300 MG CAPSULE PO SCH (13:49)
[2023-05-17] MEDS ORDERED: INSULIN (NOVOLOG) ASPART 100 UNITS/ML 10ML VIAL ONE (13:53)
[2023-05-17 13:56] LABS: IRON SERUM 52 ug/dL (50-175)
[2023-05-17 13:58] LABS: TOTAL IRON BINDING CAPACITY 258 ug/dL (250-450)
[2023-05-17] MEDS: diazePAM 5 MG TABLET PO SCH (21:00)
[2023-05-17] MEDS: NAPH,MB-DB/K PH,MBDB POWDER PACKET PO SCH (22:10)
[2023-05-17] MEDS: ATORVASTATIN CA 40 MG TABLET (FP) PO SCH (22:10)
[2023-05-17] MEDS: rOPINIRole HCL 1 MG TABLET (FP) PO SCH (22:14)
[2023-05-18 07:25] LABS: BASO % 0.6 % (0-2.0); EOS % 0.4 % (0-4.5); HEMATOCRIT 29.2 % (32.4-45.2); HEMOGLOBIN 9.8 GM/dL (10.7-15.3); LYMPH % 40.7 % (8-40); MCH 29.6 pg (25.7-33.7); MCHC 33.6 g/dl (32.0-36.0); MEAN CELL VOLUME 88.2 fl (80-96); MEAN PLT VOLUME 8.5 fl (7.5-11.1); MONO % 8.7 % (3.8-10.2); NEUT % 49.6 % (42.8-82.8); PLATELET COUNT 181 10^3/uL (134-434); RBC 3.31 M/mm3 (3.60-5.2); RDW 13.7 % (11.6-15.6); WHITE BLOOD COUNT 5.1 K/mm3 (4.0-10.0)
[2023-05-18 07:34] LABS: POTASSIUM 4.1 mmol/L (3.5-5.1)
[2023-05-18 07:46] LABS: ALBUMIN 2.4 g/dl (3.4-5.0); BLOOD UREA NITROGEN 27.1 mg/dL (7-18); CALCIUM 8.2 mg/dL (8.5-10.1); MAGNESIUM 1.6 mg/dL (1.8-2.4)
[2023-05-18 07:49] LABS: CREATININE 0.6 mg/dL (0.55-1.3); PHOSPHOROUS 2.1 mg/dL (2.5-4.9)
[2023-05-18 07:51] LABS: BILIRUBIN,TOTAL 0.3 mg/dL (0.2-1); TOT PROT 5.1 g/dl (6.4-8.2)
[2023-05-18] MEDS ORDERED: INSULIN (NOVOLOG) ASPART 100 UNITS/ML 10ML VIAL ONE (09:11)
[2023-05-18] MEDS: MAGNESIUM OXIDE 400 MG TABLET (FP) PO SCH (13:19)
[2023-05-18] MEDS: KETOROLAC TROMETHAMINE 30 MG/1 ML VIAL IVPUSH ONE (13:20)
[2023-05-18] MEDS ORDERED: NAPH,MB-DB/K PH,MBDB POWDER PACKET PO SCH (14:00)
[2023-05-18] MEDS: KETOROLAC TROMETHAMINE 30 MG/1 ML VIAL IVPUSH SCH (17:10)
[2023-05-19] MEDS: INSULIN (LEVEMIR) 100 UNITS/ML UNITS SQ SCH (06:38)
[2023-05-19 07:30] LABS: POTASSIUM 3.4 mmol/L (3.5-5.1)
[2023-05-19 07:32] LABS: CALCIUM 8.3 mg/dL (8.5-10.1)
[2023-05-19 07:33] LABS: ALBUMIN 2.4 g/dl (3.4-5.0); BLOOD UREA NITROGEN 14.4 mg/dL (7-18); MAGNESIUM 1.6 mg/dL (1.8-2.4)
[2023-05-19 07:36] LABS: CREATININE 0.4 mg/dL (0.55-1.3)
[2023-05-19 07:38] LABS: BILIRUBIN,TOTAL 0.3 mg/dL (0.2-1)
[2023-05-19] MEDS: PANTOPRAZOLE 40 MG TABLET PO SCH (10:06)
[2023-05-19] MEDS ORDERED: INSULIN (NOVOLOG) ASPART 100 UNITS/ML 10ML VIAL ONE ×2 (12:43→18:10)
[2023-05-19] MEDS: POTASSIUM CHLORIDE ORAL LIQUID 20 MEQ/15 ML PO ONE (18:12)
[2023-05-20] MEDS ORDERED: INSULIN (NOVOLOG) ASPART 100 UNITS/ML 10ML VIAL ONE (21:13)
[2023-05-20] MEDS: POLYETHYLENE GLYCOL (HEALTHYLAX) 3350 17 GM PACKET PO SCH (21:19)
[2023-05-20] MEDS: BISACODYL 10 MG SUPP.RECT PR ONE (21:22)
[2023-05-21] MEDS: DOCUSATE SODIUM 100 MG CAPSULE (FP) PO PRN (21:11)
[2023-05-21] MEDS: INSULIN (NOVOLOG) ASPART 100 UNITS/ML 10ML VIAL SQ SCH (21:12)
[2023-05-21] MEDS: INSULIN (LEVEMIR) 100 UNITS/ML UNITS SQ SCH (21:12)
[2023-05-21] MEDS ORDERED: INSULIN (NOVOLOG) ASPART 100 UNITS/ML 10ML VIAL ONE (21:25)
[2023-05-22] MEDS: INSULIN ASPART SLIDING SCALE (NOVOLOG) 1 VIAL SQ SCH (06:51)
[2023-05-22] MEDS: INSULIN (LEVEMIR) 100 UNITS/ML UNITS SQ SCH (06:51)
[2023-05-22] MEDS ORDERED: ONDANSETRON 4 MG/2 ML VIAL ONE (13:09)
[2023-05-22] MEDS ORDERED: ONDANSETRON *ODT* 4 MG TABLET SL PRN (13:14)
[2023-05-22 15:06] VITALS: BMI 23.3
[2023-05-22] MEDS: METOCLOPRAMIDE HCL INJECTION 10 MG/2 ML VIAL IVPUSH PRN (16:43)
[2023-05-22 17:00] LABS: HEMATOCRIT 27.8 % (32.4-45.2); HEMOGLOBIN 9.3 GM/dL (10.7-15.3); MCH 29.3 pg (25.7-33.7); MCHC 33.4 g/dl (32.0-36.0); MEAN CELL VOLUME 87.7 fl (80-96); MEAN PLT VOLUME 8.8 fl (7.5-11.1); PLATELET COUNT 241 10^3/uL (134-434); RBC 3.17 M/mm3 (3.60-5.2); RDW 13.2 % (11.6-15.6); WHITE BLOOD COUNT 6.8 K/mm3 (4.0-10.0)
[2023-05-22 17:21] LABS: ALBUMIN 2.2 g/dl (3.4-5.0); BLOOD UREA NITROGEN 17.6 mg/dL (7-18); CALCIUM 8.7 mg/dL (8.5-10.1)
[2023-05-22 17:24] LABS: CREATININE 0.5 mg/dL (0.55-1.3)
[2023-05-22 17:26] LABS: BILIRUBIN,TOTAL 0.2 mg/dL (0.2-1); TOT PROT 5.2 g/dl (6.4-8.2)
[2023-05-22] MEDS ORDERED: INSULIN (NOVOLOG) ASPART 100 UNITS/ML 10ML VIAL ONE (21:40)
[2023-05-23] MEDS ORDERED: INSULIN (NOVOLOG) ASPART 100 UNITS/ML 10ML VIAL ONE ×4 (06:50→22:18)
[2023-05-23] MEDS ORDERED: KETOROLAC TROMETHAMINE 15 MG/ML VIAL IVPUSH ONE (07:30)
[2023-05-23 07:51] LABS: HEMATOCRIT 26.8 % (32.4-45.2); MCH 29.3 pg (25.7-33.7); MCHC 33.5 g/dl (32.0-36.0); MEAN CELL VOLUME 87.6 fl (80-96); MEAN PLT VOLUME 9.4 fl (7.5-11.1); PLATELET COUNT 254 10^3/uL (134-434); RBC 3.06 M/mm3 (3.60-5.2); RDW 13.4 % (11.6-15.6); WHITE BLOOD COUNT 5.9 K/mm3 (4.0-10.0)
[2023-05-23 07:54] LABS: POTASSIUM 4.3 mmol/L (3.5-5.1)
[2023-05-23 08:01] LABS: CALCIUM 8.1 mg/dL (8.5-10.1)
[2023-05-23 08:02] LABS: ALBUMIN 2.1 g/dl (3.4-5.0); CREATININE 0.7 mg/dL (0.55-1.3)
[2023-05-23 08:04] LABS: BILIRUBIN,TOTAL 0.2 mg/dL (0.2-1); TOT PROT 4.9 g/dl (6.4-8.2)
[2023-05-23 08:05] LABS: BLOOD UREA NITROGEN 19.8 mg/dL (7-18)
[2023-05-23] MEDS: KETOROLAC TROMETHAMINE 30 MG/1 ML VIAL IVPUSH ONE (08:12)
[2023-05-23] MEDS: GABAPENTIN 300 MG CAPSULE PO SCH (13:29)
[2023-05-23] MEDS: HEPARIN NA (PORCINE) 5,000 UNITS/ML 1ML VIAL SQ SCH (13:30)
[2023-05-23] MEDS: MIDODRINE HCL 5 MG TABLET PO SCH (17:17)
[2023-05-23] MEDS ORDERED: CHLORHEXIDINE GLUCONATE 4% CLEANSER FOR DECOLONIZATION TP SCH (22:00)
[2023-05-23] MEDS: ATORVASTATIN CA 40 MG TABLET (FP) PO SCH (22:15)
[2023-05-23] MEDS: rOPINIRole HCL 1 MG TABLET (FP) PO SCH (22:16)
[2023-05-23] MEDS: diazePAM 5 MG TABLET PO SCH (22:19)
[2023-05-24] MEDS ORDERED: INSULIN (LEVEMIR) 100 UNITS/ML UNITS SQ ONE ×2 (09:15→18:56)
[2023-05-24] MEDS: busPIRone HCL 10 MG TABLET (FP) PO SCH (10:16)
[2023-05-24] MEDS: FLUDROCORTISONE ACETATE 0.1 MG TABLET (FP) PO SCH (10:17)
[2023-05-24] MEDS: CITALOPRAM HYDROBROMIDE 10 MG TABLET PO SCH (10:17)
[2023-05-24] MEDS ORDERED: INSULIN (NOVOLOG) ASPART 100 UNITS/ML 10ML VIAL ONE ×3 (12:32→21:29)
[2023-05-24] MEDS: KETOROLAC TROMETHAMINE 15 MG/ML VIAL IVPUSH PRN (14:54)
[2023-05-24] MEDS: LORazepam 1 MG TABLET PO ONE (15:02)
[2023-05-25] MEDS ORDERED: INSULIN (NOVOLOG) ASPART 100 UNITS/ML 10ML VIAL ONE ×3 (12:24→21:12)
[2023-05-26] MEDS ORDERED: INSULIN (NOVOLOG) ASPART 100 UNITS/ML 10ML VIAL ONE ×3 (06:29→21:11)
[2023-05-26 10:01] LABS: BASO % 0.9 % (0-2.0); EOS % 3.1 % (0-4.5); HEMATOCRIT 25.8 % (32.4-45.2); HEMOGLOBIN 8.6 GM/dL (10.7-15.3); LYMPH % 34.1 % (8-40); MCH 29.5 pg (25.7-33.7); MCHC 33.2 g/dl (32.0-36.0); MEAN PLT VOLUME 8.6 fl (7.5-11.1); MONO % 11.6 % (3.8-10.2); NEUT % 50.3 % (42.8-82.8); PLATELET COUNT 306 10^3/uL (134-434); RDW 13.6 % (11.6-15.6); WHITE BLOOD COUNT 5.7 K/mm3 (4.0-10.0)
[2023-05-26 10:18] LABS: POTASSIUM 4.5 mmol/L (3.5-5.1)
[2023-05-26 10:20] LABS: CALCIUM 8.1 mg/dL (8.5-10.1)
[2023-05-26 10:24] LABS: CREATININE 0.5 mg/dL (0.55-1.3)
[2023-05-26 14:21] VITALS: RESP 18
[2023-05-27 10:21] LABS: BASO % 0.7 % (0-2.0); EOS % 2.4 % (0-4.5); HEMATOCRIT 24.6 % (32.4-45.2); HEMOGLOBIN 8.1 GM/dL (10.7-15.3); LYMPH % 22.4 % (8-40); MCH 29.4 pg (25.7-33.7); MCHC 32.8 g/dl (32.0-36.0); MEAN CELL VOLUME 89.6 fl (80-96); MEAN PLT VOLUME 8.2 fl (7.5-11.1); MONO % 9.1 % (3.8-10.2); NEUT % 65.4 % (42.8-82.8); PLATELET COUNT 307 10^3/uL (134-434); RBC 2.74 M/mm3 (3.60-5.2); RDW 13.5 % (11.6-15.6)
[2023-05-27] MEDS: ACETAMINOPHEN 325 MG TABLET (FP) PO PRN (11:43)
[2023-05-27 11:54] LABS: POTASSIUM 4.1 mmol/L (3.5-5.1)
[2023-05-27 11:57] LABS: ALBUMIN 2.2 g/dl (3.4-5.0); BLOOD UREA NITROGEN 13.7 mg/dL (7-18); CALCIUM 7.9 mg/dL (8.5-10.1)
[2023-05-27 11:59] LABS: CREATININE 0.6 mg/dL (0.55-1.3)
[2023-05-27 12:02] LABS: BILIRUBIN,TOTAL 0.2 mg/dL (0.2-1); TOT PROT 5.1 g/dl (6.4-8.2)
[2023-05-27] MEDS ORDERED: INSULIN (NOVOLOG) ASPART 100 UNITS/ML 10ML VIAL ONE (21:40)
[2023-05-27] MEDS: MELATONIN 5 MG TABLETS PO ONE (22:59)
[2023-05-28 09:25] LABS: BASO % 0.7 % (0-2.0); EOS % 2.7 % (0-4.5); HEMATOCRIT 24.1 % (32.4-45.2); LYMPH % 32.6 % (8-40); MCH 29.8 pg (25.7-33.7); MEAN CELL VOLUME 90.2 fl (80-96); MEAN PLT VOLUME 8.2 fl (7.5-11.1); MONO % 9.3 % (3.8-10.2); NEUT % 54.7 % (42.8-82.8); PLATELET COUNT 276 10^3/uL (134-434); RBC 2.68 M/mm3 (3.60-5.2); RDW 13.6 % (11.6-15.6); WHITE BLOOD COUNT 6.2 K/mm3 (4.0-10.0)
[2023-05-28] MEDS: KETOROLAC TROMETHAMINE 15 MG/ML VIAL IVPUSH PRN (22:10)
[2023-05-29] MEDS ORDERED: INSULIN (LEVEMIR) 100 UNITS/ML UNITS SQ ONE ×2 (07:01→21:14)
[2023-05-29 09:18] LABS: BASO % 0.9 % (0-2.0); EOS % 2.4 % (0-4.5); HEMATOCRIT 26.1 % (32.4-45.2); HEMOGLOBIN 8.8 GM/dL (10.7-15.3); LYMPH % 28.5 % (8-40); MCHC 33.6 g/dl (32.0-36.0); MEAN CELL VOLUME 89.1 fl (80-96); MONO % 6.1 % (3.8-10.2); NEUT % 62.1 % (42.8-82.8); PLATELET COUNT 317 10^3/uL (134-434); RBC 2.93 M/mm3 (3.60-5.2); RDW 13.8 % (11.6-15.6); WHITE BLOOD COUNT 6.2 K/mm3 (4.0-10.0)
[2023-05-29 09:40] LABS: POTASSIUM 3.9 mmol/L (3.5-5.1)
[2023-05-29 09:49] LABS: CALCIUM 8.3 mg/dL (8.5-10.1)
[2023-05-29 09:50] LABS: BLOOD UREA NITROGEN 15.4 mg/dL (7-18)
[2023-05-29 09:51] LABS: ALBUMIN 2.5 g/dl (3.4-5.0)
[2023-05-29 09:53] LABS: TOT PROT 5.6 g/dl (6.4-8.2)
[2023-05-29 09:55] LABS: BILIRUBIN,TOTAL 0.3 mg/dL (0.2-1); CREATININE 0.5 mg/dL (0.55-1.3)
[2023-05-29] MEDS ORDERED: INSULIN (NOVOLOG) ASPART 100 UNITS/ML 10ML VIAL ONE (12:13)
[2023-05-29] MEDS ORDERED: IOHEXOL (OMNIPAQUE PO) 12 MG/ML - 500 ML BOTTLE PO ONE ×2 (12:59→13:32)
[2023-05-30 06:41] VITALS: TEMP 97.7
[2023-05-30] MEDS ORDERED: INSULIN (NOVOLOG) ASPART 100 UNITS/ML 10ML VIAL ONE (12:03)
[2023-05-30] MEDS: BISACODYL 5 MG TABLET.DR (FP) PO SCH (12:14)
[2023-05-30] MEDS: ACETAMINOPHEN 325 MG TABLET (FP) PO PRN (12:21)
[2023-05-30 14:29] VITALS: BP 122/68; PULSE 75
== END 2023-05-30 16:04 | disposition home health service (06) | DRG 637 ==
LOC: JER 14:02 → JERBED 16:37 → JICU 19:40 → J8W 05-23 12:02
PROVIDERS: ADMIT Internal Medicine; ATTEND Family Medicine
DX: E11.10 Type 2 diabetes mellitus with ketoacidosis without coma (principal); G93.41 Metabolic encephalopathy; R57.1 Hypovolemic shock; N17.9 Acute kidney failure, unspecified; I10 Essential (primary) hypertension; E78.5 Hyperlipidemia, unspecified; E11.40 Type 2 diabetes mellitus with diabetic neuropathy, unspecified; E83.39 Other disorders of phosphorus metabolism; D64.9 Anemia, unspecified; Z79.4 Long term (current) use of insulin; F14.10 Cocaine abuse, uncomplicated; E11.51 Type 2 diabetes mellitus with diabetic peripheral angiopathy without gangrene; Z91.148 Patient's other noncompliance with medication regimen for other reason; F13.10 Sedative, hypnotic or anxiolytic abuse, uncomplicated; E11.43 Type 2 diabetes mellitus with diabetic autonomic (poly)neuropathy; K31.84 Gastroparesis; R79.89 Other specified abnormal findings of blood chemistry
CPT/HCPCS: 0241U-QW; 36415; 71045-TC-FY; 74177-TC; 80048; 80053; 80307; 81003; 82010; 82272; 82607; 82728; 82803; 82962; 83540; 83550; 83605; 83690; 83735; 84100; 84466; 84484; 85025; 85027; 85045; 85610; 85730; 86850; 86900; 86901; 87040; 87086; 87635; 93005; 93010; 97116-GP; 97162-GP; 99291; J0131; J1644; J3480; Q9967